=== PATIENT | male | born 1945 | race Caucasian/White ===

== ENCOUNTER 2025-02-09 00:35 | Inpatient (IN) | payer MEDICARE, MEDICAID ==
[~2025-02-09] VITALS: Ht 181.6 cm; Wt 77.0 kg
[2025-02-09] VITALS (11 sets, daily range): BP systolic 67–113; BP diastolic 44–66; PULSE 72–101; RESP 16–20; TEMP 97.5–99; O2SAT 90–97
--- NOTE | 2025-02-09 00:49 | Physician Documentation ---
History of Present Illness Stated Complaint: GI ISSUES Time Seen by MD: 00:45 Source: RN/, EMS Mode of Arrival: EMS HPI Transfer from outside hospital I received a phone call this patient for transfer. He has a small bowel obstruction or gastric outlet obstruction. Presented with abdominal pain and vomiting. Labs show a leukocytosis and elevated lactate. He was initially hypotensive, and given 3 L of IV fluids. An NG tube was placed. He had been previously admitted at [place], and his symptoms resolved with conservative management. They did consult their surgeon, who felt that he may require higher level of care and/or GI intervention, and so he will be transferred. Here now in the ED, he was complaining of upper abdominal pain, although he states it is better than when he initially presented to the ER. Per EMS, he did have slightly diminished blood pressure during transport, he had significant output from his NG tube. Medication Reconciliation Allergies: Coded Allergies: No Known Allergies (Unverified , 02/09/25) Scheduled Aspirin (Aspir 81), 1 TAB PO DAILY, (Reported) Buspirone Hcl* (Buspar*), 1.5 TAB PO Q12H, (Reported) Gabapentin (Gabapentin), 0.5 TAB PO DAILY, (Reported) Melatonin (Melatonin), 1 TAB PO HS, (Reported) Methylphenidate HCl (Methylphenidate HCl), 1 TAB PO DAILY, (Reported) Midodrine Hcl* (Proamatine*), 2 TAB PO BID, (Reported) Omeprazole (Prilosec), 1 CAP PO DAILY, (Reported) Oxybutynin Chloride (Oxybutynin Chloride), 2 TAB PO DAILY, (Reported) Pregabalin* (Lyrica*), 2 CAP PO BID, (Reported) Quetiapine Fumarate (Seroquel), 1 TAB PO BID, (Reported) Past Medical History Past Medical History: Bowel Obstruction Review of Systems Constitutional: Denies: fever Gastrointestinal: Reports: abdominal pain, nausea, vomiting Physical Exam Physical Exam General: This is a chronically ill-appearing elderly man, on an EMS stretcher, with an NG tube HEENT: Atraumatic, oropharynx is dry. NG tube in place with dark brown output Heart: Tachycardic, appears regular Lungs: Diminished breath sounds bilateral, normal work of breathing, normal oxygen saturation on room air Abdomen: Soft, nondistended, tender to palpation in the upper abdomen Psychiatric: Appears tired but is cooperative with exam Medical Decision Making Additional info obtained from: old records Findings Reviewed records from outside hospital, [place] [id number], elevated lactate, and CT scan with obstruction Additional Comments The patient presents as a transfer from outside hospital, with essentially a duodenal obstruction. Initially here in the ED, he has slightly hypotensive, and was given further IV fluids, he does have significant output from his NG tube and I suspect fluid loss has a cause of his dehydration. Sepsis remains in the differential and so lactate and blood cultures will be obtained. I did review his CT scan after we uploaded it from the CD, which shows a markedly distended stomach and duodenum. I contacted the medicine service for admission, with plan for surgical/possibly GI consult in the morning. Departure Impression: Primary Impression: Obstruction, duodenum Referrals: NO PRIMARY CARE PROVIDER (PCP) Signature Scribe Signature: na Attestation: MARTINEZ Gutierrez MD Feb 09, 2025 00:49
[2025-02-09] MEDS: ondansetron/PF 4mg/2ml inj IM ONE (00:59)
[2025-02-09] MEDS: morphine 4 MG/ML inj SYRINge IV ONE (00:59)
[2025-02-09 01:23] LABS: BASOPHILS % (AUTO) 0.3 % (0-1); EOSINOPHILS % (AUTO) 0 % (0-6); HEMATOCRIT 42.2 % (42.0-52.0); HEMOGLOBIN 13.7 g/dl (14.0-17.9); LYMPHOCYTES % (AUTO) 6.6 % (21-51); MEAN CORPUSCULAR HEMOGLOBIN 28.3 PG (27.0-31.0); MEAN CORPUSCULAR HGB CONC 32.4 g/dL (33.0-36.5); MEAN CORPUSCULAR VOLUME 87.1 FL (78-98); MONOCYTES # (AUTO) 0.7 X10'3 (0-0.9); MONOCYTES % (AUTO) 4.4 % (2-12); NEUTROPHILS # (AUTO) 13.3 X10'3 (1.8-7.7); NEUTROPHILS % (AUTO) 88.7 % (42-75); PLATELET COUNT 444 X10'3 (140-440); RED BLOOD COUNT 4.85 X10'6 (4.70-6.10)
[2025-02-09 01:37] LABS: INR 1.1 INR; PROTHROMBIN TIME 11.2 SECONDS (9.0-12.0)
[2025-02-09 01:41] LABS: ALANINE AMINOTRANSFERASE 33 U/L (12-78); ALBUMIN 3.9 G/DL (3.4-5.0); ALBUMIN/GLOBULIN RATIO 0.7 (1.1-1.5); ALKALINE PHOSPHATASE 82 IU/L (46-116); ANION GAP 10 (8-16); ASPARTATE AMINO TRANSFERASE 31 U/L (10-37); BILIRUBIN,TOTAL 0.7 MG/DL (0.1-1.0); BLOOD UREA NITROGEN 18 MG/DL (7-18); BUN/CREATININE RATIO 14.8 (10.0-20.0); CHLORIDE 98 MMOL/L (99-107); CREATININE 1.22 MG/DL (0.60-1.10); GLUCOSE 126 MG/DL (70-104); POTASSIUM 4.5 MMOL/L (3.5-5.1); SODIUM 139 MMOL/L (135-145); TOTAL CARBON DIOXIDE 30.9 MMOL/L (24-32); TOTAL PROTEIN 9.2 G/DL (6.4-8.2); eCRCL 53 ML/MIN; eGFR 57 ML/MIN
[2025-02-09] MEDS ORDERED: MIDO2.5T PO (01:52)
[2025-02-09] MEDS ORDERED: OXYB5TAB21 PO (01:52)
[2025-02-09] MEDS ORDERED: QUET25TA PO (01:52)
[2025-02-09] MEDS ORDERED: METH-348 PO (01:52)
[2025-02-09] MEDS ORDERED: OMEP40CA21 PO (01:52)
[2025-02-09] MEDS ORDERED: LYR25C PO (01:52)
[2025-02-09] MEDS ORDERED: GABA-1405 PO (01:52)
[2025-02-09] MEDS ORDERED: MELA10TA2 PO (01:52)
[2025-02-09] MEDS ORDERED: BUSP10TA11 PO (01:52)
[2025-02-09] MEDS ORDERED: ASPI-611 PO (01:52)
[2025-02-09] MEDS ORDERED: mag hydrox/Alum hydrox/simeth 30ml oral suspension PO PRN (02:05)
[2025-02-09] MEDS ORDERED: magnesium hydroxide 30ml (MOM) UD suspension PO PRN (02:05)
[2025-02-09] MEDS ORDERED: potassium Cl 40MEQ/1/2NS 520ml 520 ML IV PRN (02:05)
[2025-02-09] MEDS ORDERED: PERFLUTREN PROTEIN-A MICROSPHR (Optison) 0.22 MG/ML 3ML VIAL IV PRN (02:05)
[2025-02-09] MEDS ORDERED: magnesium Cl slow-release 64mg tablet PO PRN (02:05)
[2025-02-09] MEDS ORDERED: potassium Cl 20 mEq SR tablet PO PRN ×2 (02:05)
[2025-02-09] MEDS ORDERED: magnesium sulf-water 4G/100mL 100 ML IV PRN (02:05)
[2025-02-09] MEDS ORDERED: magnesium sulf-water 2g/50mL 50 ML IV PRN (02:05)
--- NOTE | 2025-02-09 02:12 | HISTORY AND PHYSICAL-Residence ---
History & Physical Providers to CC Resident Creating Document: LEONA ZEPEDA, RES CC: JERMAIN LAGOS MD ~ History of Present Illness Reason for Admit\Complaint: Pain abdomen and vomitings History of Present Illness A 74-year-old male with past medical history it was of esophagitis, large bowel obstruction presented to the ED as a transfer from [place] in view of abdominal pain and multiple episodes of vomitings. Patient endorses that he has lower abdominal pain which is dull in character with a severity of 6/10 without radiation and no aggravating or relieving factors associated with multiple episodes of vomitings since this morning. Patient states that he has bilious vomitings with food particles in the vomitus since this morning. Patient had a similar episode two days ago which relieved with NG tube placement. Patient denies fever, hematemesis, melena. In the ED, patient had low blood pressure with systolic in the range of 80s to 90s that responded to IV fluids. Allergies: Coded Allergies: No Known Allergies (Unverified , 02/09/25) Home Medications Home Medications Active Reported Gabapentin 600 Mg Tablet 0.5 Tab PO DAILY 30 Days Seroquel (Quetiapine Fumarate) 25 Mg Tablet 1 Tab PO BID 30 Days Lyrica* (Pregabalin) 25 Mg Capsule 2 Cap PO BID Oxybutynin Chloride 5 Mg Tablet 2 Tab PO DAILY 30 Days Prilosec (Omeprazole) 40 Mg Capsule 1 Cap PO DAILY 30 Days Proamatine* (Midodrine) 2.5 Mg Tablet 2 Tab PO BID Methylphenidate HCl 5 Mg Tablet 1 Tab PO DAILY 5 Days Melatonin 10 Mg Tablet 1 Tab PO HS 30 Days Buspar* (Buspirone HCl) 10 Mg Tablet 1.5 Tab PO Q12H 30 Days Aspir 81 (Aspirin) 81 Mg Tablet.dr 1 Tab PO DAILY 30 Days Past Medical History Past Medical History Erosive gastritis Anxiety Bipolar affective disorder BPH Chronic low back pain and neck pain Depression Dysphagia HLD Large bowel obstruction Tracheal stenosis Past Surgical History Surgical History Comment Splenectomy Tracheostomy Aortic repair Past Social History Social History Comment Lives at home by himself Uses cane to move around Denies alcohol, tobacco, marijuana or illicit drug use ROS ROS All other systems negative except for the pertinent positives mentioned in the HPI Constitutional: Denies: fever Gastrointestinal: Reports: abdominal pain, nausea, vomiting Exam Vitals: Vital Signs Date Time Temp Pulse Resp B/P (MAP) Pulse Ox O2 Delivery O2 Flow Rate FiO2 02/09/25 00:59 13 02/09/25 00:54 98.2 107 94/51 (65) 100 2.0 General: General: Elderly malnourished male, Alert, awake, oriented, with NG tube HEENT: PERRLA, no icterus, pallor, lymphadenopathy, carotid bruit Respiratory system: Bilateral vesicular breath sounds heard, no adventitious breath sounds CVS: S1-S2 heard, no murmurs/rubs/gallop GI: Tenderness in the lower abdomen and left abdominal quadrant, Soft, no organomegaly, no guarding/rigidity, hypoactive bowel sounds, a linear surgical scar present on the abdomen Neuro: No focal neurological deficits present Extremities: No edema cyanosis clubbing Musculoskeletal: No deformities Skin: Warm and dry Diagnostic Data Last Recorded Lab Results: 02/09/2510802/09/25 010 Diagnostic Data: Laboratory Tests Test 02/09/25 01:09 Prothrombin Time 11.2 SECONDS (9.0-12.0) INR International Normalized Ratio 1.1 INR APTT (Heparin Protocol) 26 SECONDS (45-60) L Coagulation Comments Advance Care Planning Advanced Care plannin - 30 Minutes (I spent 20 minutes discussing various resuscitative measures and the patient decided to be full code) Additional Plan Assessment: A 74-year-old male with multiple medical complaints presented to the ED as a transfer in view of abdominal pain and vomitings. Patient was admitted for the evaluation and management of possible small-bowel obstruction. Plan: Possible small bowel obstruction Leukocytosis with left shift Lactic acidosis CT abdomen: New gastric and distal esophageal and proximal duodenal dilatation at the level of mid transverse duodenum. Increased stool in the rectosigmoid colon consistent with constipation IV ciprofloxacin and Flagyl (day one) IV fluids at 75 cc/hour Pain management and IV Zofran 4 mg p.r.n. NG tube placement Surgery consult in a.m. Prerenal NOHELIA probably secondary to renal tubular stasis Elevated creatinine Continue to monitor BMP Continue IV fluids Elevated protein Reassess after fluid resuscitation If persistently high, consider evaluation for multiple myeloma CAD Continue aspirin 81 mg after surgery Held in view of possible surgery Bipolar affective disorder Depression Continue quetiapine, methylphenidate, buspirone BPH Continue oxybutynin HLD Not on any statins in home meds Reassess in a.m. Chronic low back pain Continue pregabalin Code status: Full code Diet: NPO DVT prophylaxis: SCD Disposition: Admit to ortho, surgery consult in a.m. Leona Zepeda MD Internal Medicine, PGY 1 Attending Physician Attestation Evaluation via HIPAA compliant AV device. I discussed the case with the resident and I agree with the resident's documentation. 74-year-old man with a history of multiple abdominal surgeries (aorta, spleen) and large bowel obstruction transferred from [facility] for management of a small bowel obstruction at the level of the duodenum. He has developed intractable nausea and emesis despite nasogastric suction. Physical examination is notable for left lower quadrant tenderness without rebound. Laboratory studies are notable for a rising lactic acid level. The treatment plan includes: Usual measures for management of a small bowel obstruction including IV hydration, antiemetic therapy and nasogastric suction. Repeat CT of the abdomen and pelvis and serial lactic acid measurements. Piperacillin-tazobactam antimicrobial therapy for coverage of enteric alyssa. A General Surgery consultation has been requested. Critical care time 35 minutes. Date of Service: Feb 09, 2025 Billing Provider: JERMAIN LAGOS MD, SIVA, RES Feb 09, 2025 02:12 JERMAIN LAGOS MD Feb 09, 2025 05:17
[2025-02-09] MEDS: normal saline 1000ml 1,000 ML IV SCH ×2 (02:47→03:25)
[2025-02-09 02:53] LABS: MAGNESIUM 2.7 MG/DL (1.5-2.4)
[2025-02-09] MEDS ORDERED: ondansetron/PF 4mg/2ml inj IV PRN (03:25)
[2025-02-09] MEDS: metroNIDAZOLE-Flagyl 500mg/NS 100 ML IV SCH (03:40)
[2025-02-09] MEDS: ciprofloxacin/D5W 200mg/100mL 100 ML IV SCH (03:59)
[2025-02-09] MEDS ORDERED: diatr meglu/diatrizoate 30ml oral sol.-(3 dose) bottle ONE (05:22)
--- NOTE | 2025-02-09 06:35 | ELECTROCARDIOGRAPH REPORT ---
[facility] Test Date: 2025-02-09 Test Time: 00:42:37 Pat Name: AMNA CASAS Department: EMERGENCY ROOM Room: ORTHO [address] Gender: M Pool Lifeguard: REMY : 1945 Requested By: MARTINEZ HALEY Order Number: [id number] Reading MD: Dr. Jelani Núñez Measurements Intervals [place] Rate: 115 P: 50 NJ: 168 QRS: 96 QRSD: 109 T: 13 QT: 331 QTc: 458 Interpretive Statements Sinus tachycardia Probable left atrial enlargement Right axis deviation Baseline wander in lead(s) V5 Electronically Signed On 02-09-2025 19:02:[address] Jelani Núñez Please click the below link to view image of tracing.
--- NOTE | 2025-02-09 06:36 | RADIOLOGY REPORT ---
EXAM: CT Abdomen and Pelvis Without Intravenous Contrast CLINICAL INDICATION: Bowel obstruction TECHNIQUE: Axial computed tomography images of the abdomen and pelvis without intravenous contrast. This CT exam was performed using one or more of the following dose reduction techniques: automated exposure control, adjustment of the mA and/or kV according to patient size, and/or use of iterative r econstruction technique. CONTRAST: COMPARISON: None FINDINGS: LUNG BASES: Unremarkable. No mass. No consolidation. ABDOMEN: LIVER: Unremarkable. GALLBLADDER AND BILE DUCTS: Unremarkable. No calcified stones. No ductal dilation. PANCREAS: Unremarkable. No ductal dilation. SPLEEN: Unremarkable. No splenomegaly. ADRENALS: Unremarkable. No mass. KIDNEYS AND URETERS: Unremarkable. No obstructing stones. No hydronephrosis. STOMACH AND BOWEL: Colon measures up to 6.2 cm in diameter with constipation. No pneumoperitoneum. No obstruction. No mucosal thickening. PELVIS: APPENDIX: No findings to suggest acute appendicitis. BLADDER: Unremarkable. No stones. REPRODUCTIVE: Unremarkable as visualized. ABDOMEN and PELVIS: INTRAPERITONEAL SPACE: See above. BONES/JOINTS: No acute fracture. No dislocation. SOFT TISSUES: Umbilical hernia containing fat. VASCULATURE: Unremarkable. No abdominal aortic aneurysm. LYMPH NODES: Unremarkable. No enlarged lymph nodes. TUBES, LINES AND DEVICES: Enteric tubes in the stomach. OTHER FINDINGS: . . . . IMPRESSION: 1. Colon measures up to 6.2 cm in diameter with constipation. No pneumoperitoneum. 2. Umbilical hernia containing fat.
[2025-02-09] MEDS: HYDROcodone/acetaminophen 5mg/325mg tablet PO ONE (07:01)
[2025-02-09 07:02] LABS: BILIRUBIN,URINE NEGATIVE (Neg); CLARITY,URINE CLEAR (Clear); COLOR,URINE YELLOW (Yellow); GLUCOSE, URINE NEGATIVE (Neg); KETONES,URINE NEGATIVE (Neg); LEUKOCYTE ESTERASE ,URINE NEGATIVE (Neg); NITRITES, URINE NEGATIVE (Neg); OCCULT BLOOD,URINE NEGATIVE (Neg); PH,URINE 7.5 (4.8-8.0); PROTEIN,URINE TRACE mg/dl (Neg); UROBILINOGEN,URINE 0.2 E.U/dL (0.2-1.0)
[2025-02-09 07:05] LABS: UA COLLECTION TYPE NON-SPECIFIED
[2025-02-09 07:08] LABS: BACTERIA,URINE FEW /HPF (Neg); MUCUS STRANDS NONE SEEN /LPF (Neg); RBC,URINE NONE SEEN /HPF (0-2); SQUAMOUS EPITHELIAL CELL,UR FEW /LPF (FEW); WBC,URINE 0-4 /HPF (0-4)
[2025-02-09] MEDS: K and/or MAG REPLACEMENT MC SCH (08:00)
[2025-02-09] MEDS: busPIRone 15mg tablet PO SCH (08:24)
[2025-02-09] MEDS: pregabalin 25mg capsule PO SCH (08:24)
[2025-02-09] MEDS: oxybutynin 5mg tablet PO SCH (08:24)
[2025-02-09] MEDS: docusate sod 100mg capsule PO SCH (08:24)
[2025-02-09] MEDS: gabapentin 300mg capsule PO SCH (08:24)
[2025-02-09] MEDS: pantoprazole 40mg Tablet.DR PO SCH (08:24)
[2025-02-09] MEDS: QUEtiapine 25mg tablet PO SCH (08:24)
[2025-02-09] MEDS: piperacillin/tazo 3.375gm/50ml 50 ML IV SCH (08:24)
[2025-02-09] MEDS: diatr meglu/diatrizoate 30ml oral sol.-(3 dose) bottle PO SCH (08:25)
[2025-02-09] MEDS: midodrine 5mg tablet PO SCH (08:38)
[2025-02-09] MEDS: methylphenidate 5mg tablet PO SCH (10:42)
[2025-02-09] MEDS: midodrine tablet 2.5 MG TABLET PO ONE (11:02)
[2025-02-09] MEDS: normal saline 1000ml 1,000 ML IVB ONE ×2 (11:05→11:45)
--- NOTE | 2025-02-09 13:35 | CARDIOLOGY REPORT ---
APPROVED REPORT EXAM: Comprehensive 2D, Doppler, and color-flow Echocardiogram. Patient Location: [address] Blood Pressure: 100/45 mmHg Heart Rate: 95 bpm Rhythm: SINUS Indications CONGESTIVE HEART FAILURE PRE-OP BOWEL OBSTRUCTION Medical Delivery Technician: none Previous echo: none 2D Dimensions RVDd 4.5 cm LA Diam3.6 cm IVSd 0.9 (0.7-1.1cm) LVDd 3.9 cm PWd 0.9 (0.7-1.1cm) RA Major4.7 cm IVSs 1.1 (0.8-1.2cm) RA Minor4.9 cm LVDs 2.3 (2.5-4.0cm) PWs 1.2 (0.8-1.2cm) LVOT Diameter 2.01 (1.8-2.4cm) LVEF(%) 71.6 (>50%) FS (%) 40.3 % SV 47.3 ml CO 4.3 L/min Biplane 2D LA Volumes LA ESV Index 25.41 mL/m2 Aortic Valve AoV Peak Yandel. 207.5 cm/s AoV VTI 37.3 cm AO Peak GR. 17.2 mmHg AO Mean GR. 10 mmHg LVOT VTI 33.54 cm LVOT Peak Yandel. 173.4 cm/s JIHAN(VTI)/BSA 2.84 cm2/m2 JIHAN (VTI) 2.84 cm2 Mitral Valve MV E Velocity 85.9 cm/s MV Peak Gr. 4 mmHg MV DECEL TIME 268 ms MV A Velocity 120.9 cm/s MV PHT 44 ms E/A Ratio 0.7 MVA (PHT) 5.00 cm2 MV GPvx676.0 cm/s TDI Medial E' P. V 7.67 cm/s E/Medial E' 11.2 Pulmonary Valve PAEDP18.40 mmHg Tricuspid Valve TR P. Velocity 287 cm/s RAP ESTIMATE 10 mmHg TR Peak Gr. 33 mmHg RVSP 43 mmHg Pulmonary Vein S1 Velocity 79.4 cm/s D2 Velocity 54.6 cm/s PVa Npwhonqc87.6 cm/s PVa Pyfktrxz660 msec LEFT VENTRICLE Normal LV size and wall thickness. Overall systolic function is hyperdynamic. Prominent septal knuckl e is measured at: 1.58 cm. LVEF is 70-75%. RIGHT VENTRICLE RV is moderately dilated with normal systolic function. RVSP is estimated at 43 mmHg. ATRIA LA size is normal. AORTIC VALVE Trileaflet AV appears mildly sclerotic without stenosis or insufficiency. MITRAL VALVE Mild MV annular calcification without stenosis. Mild regurgitation. TRICUSPID VALVE TV appears structurally normal with trace regurgitation. PULMONIC VALVE Normal PV without stenosis, mild insufficiency. GREAT VESSELS Aortic root is normal in size. Ascending aorta is normal in size. PERICARDIUM Normal pericardium. No effusion. Other Information Study Quality: Adequate Conclusion Normal LV size and wall thickness. Overall systolic function is hyperdynamic. Prominent septal knuckl e is measured at: 1.58 cm. LVEF is 70-75%. RV is moderately dilated with normal systolic function. RVSP is estimated at 43 mmHg. LA size is normal. Trileaflet AV appears mildly sclerotic without stenosis or insufficiency. Mild MV annular calcification without stenosis. Mild regurgitation. TV appears structurally normal with trace regurgitation. Normal PV without stenosis, mild insufficiency. Normal pericardium. No effusion.
--- NOTE | 2025-02-09 14:53 | RADIOLOGY REPORT ---
CT abdomen and pelvis with oral contrast INDICATION: SBO at the level of duodenal Comparison: 02/08/2025 TECHNIQUE: Serial axial images were performed through the abdomen and pelvis and then reformatted in the sagittal and coronal plane. All CT scans at this medical facility are performed using dose modula tion techniques as appropriate to a performed exam including the following: Automated exposure contro l was utilized; adjustment of the MA and/or KvP according to patient size; and use of iterative recon struction technique. FINDINGS: Pleural and parenchymal disease is present both lung bases. No obvious lesions in the liver or spleen Line no hydronephrosis No masses in the adrenal glands or pancreas No biliary dilatation. Question small gallstones. There is an NG tube present in the stomach. There is no suggestion of obstruction of the stomach, small intestine or large intestine. The urinary bladder is smooth walled There is mild rectal distention containing fecal material. Prostate gland normal in size. IMPRESSION: 1. Compared to previous exam an NG tube is been placed with decompression of the stomach and duodenum . No evidence of small-bowel obstruction on this exam. 2. Bibaslar pleural and parenchymal . Question aspiration related Computed Tomographic Radiation Dosimetry Report: Total CTDI vol = 24 mGy Total DLP = 1427 mGy-cm Low dose protocols were performed.
[2025-02-09] MEDS ORDERED: acetaminophen 325mg tablet PO PRN (15:15)
[2025-02-09] MEDS: acetaminophen 325mg tablet PO PRN (15:27)
[2025-02-09] MEDS: LidoCAINE 2% Topical Jelly 11mL syringe (UROJET) TOP ONE (16:47)
[2025-02-09] MEDS: ondansetron/PF 4mg/2ml inj IV PRN (19:00)
--- NOTE | 2025-02-09 21:11 | PROGRESS NOTE ---
Progress Note ID Providers to CC ~ Progress Note Progress Note: repeat ct much improved NEDA HAWKINS MD Feb 09, 2025 21:11
[2025-02-09] MEDS: normal saline 1000ml 1,000 ML IV ONE (23:17)
[2025-02-10] VITALS (14 sets, daily range): BP systolic 93–118; BP diastolic 46–67; PULSE 78–99; RESP 14–18; TEMP 97.9–99.1; O2SAT 92–97
[2025-02-10] MEDS: normal saline 1000ml 1,000 ML IV ONE (01:15)
[2025-02-10 04:36] LABS: BASOPHILS % (AUTO) 0.1 % (0-1); EOSINOPHILS # (AUTO) 0.2 X10'3 (0-0.9); EOSINOPHILS % (AUTO) 1.4 % (0-6); HEMATOCRIT 26.5 % (42.0-52.0); HEMOGLOBIN 8.6 g/dl (14.0-17.9); LYMPHOCYTES # (AUTO) 1.8 X10'3 (1.1-4.8); LYMPHOCYTES % (AUTO) 9.7 % (21-51); MEAN CORPUSCULAR HEMOGLOBIN 28.3 PG (27.0-31.0); MEAN CORPUSCULAR HGB CONC 32.5 g/dL (33.0-36.5); MEAN CORPUSCULAR VOLUME 87.1 FL (78-98); MEAN PLATELET VOLUME 8.5 FL (7.4-10.4); MONOCYTES # (AUTO) 1.5 X10'3 (0-0.9); MONOCYTES % (AUTO) 8.1 % (2-12); NEUTROPHILS # (AUTO) 14.6 X10'3 (1.8-7.7); NEUTROPHILS % (AUTO) 80.7 % (42-75); PLATELET COUNT 307 X10'3 (140-440); RED BLOOD COUNT 3.04 X10'6 (4.70-6.10); RED CELL DISTRIBUTION WIDTH 15.7 % (11.5-14.5); WHITE BLOOD COUNT 18.1 X10'3 (4.5-11.0)
[2025-02-10 04:44] LABS: ALANINE AMINOTRANSFERASE 12 U/L (12-78); ALBUMIN 2.1 G/DL (3.4-5.0); ALBUMIN/GLOBULIN RATIO 0.6 (1.1-1.5); ALKALINE PHOSPHATASE 47 IU/L (46-116); ANION GAP 3 (8-16); ASPARTATE AMINO TRANSFERASE 16 U/L (10-37); BILIRUBIN,TOTAL 0.5 MG/DL (0.1-1.0); BLOOD UREA NITROGEN 15 MG/DL (7-18); BUN/CREATININE RATIO 18.5 (10.0-20.0); CALCIUM 8.2 MG/DL (8.5-10.1); CHLORIDE 108 MMOL/L (99-107); CREATININE 0.81 MG/DL (0.60-1.10); GLUCOSE 97 MG/DL (70-104); SODIUM 140 MMOL/L (135-145); TOTAL CARBON DIOXIDE 28.6 MMOL/L (24-32); TOTAL PROTEIN 5.7 G/DL (6.4-8.2); eCRCL 80 ML/MIN; eGFR > 90 ML/MIN
[2025-02-10] MEDS: pantoprazole 40 MG vial IV ONE (05:43)
[2025-02-10] MEDS: morphine 2 MG/ML inj. syringe IV ONE ×2 (05:44→09:48)
--- NOTE | 2025-02-10 09:11 | RADIOLOGY REPORT ---
EXAM: DI CHEST,SINGLE VIEW HISTORY: Questionable pneumoniae COMPARISON: None TECHNIQUE: Portable upright AP view of the chest was performed. FINDINGS: There are extensive irregular opacities throughout the left hemithorax, with leftward shift of the he art and mediastinum. There are mild irregular opacities in the right lung, greatest in the upper lung . No pneumothorax. Cardiac margins are obscured. There is an aortic arch endovascular stent. There i s an NG tube with its tip at least 7 cm distal to the GE junction. IMPRESSION: 1. Extensive left lung opacities with leftward shift of the heart and mediastinum. It is uncertain if this appearance may be due to prior partial pneumonectomy, atelectasis, or other etiology. Please co rrelate with any surgical history for this patient. 2. Irregular opacities in the right lung, greatest in the upper lung. This appearance may be due to s carring, reactive airways disease, and/or typical pneumonia. Consider follow-up noncontrast CT scan of the chest for better characterization. 3. NG tube tip is distal to the GE junction. 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
[2025-02-10] MEDS: methylPREDNISolone sod succ 125mg/2ml vial IV ONE (09:48)
--- NOTE | 2025-02-10 11:39 | RADIOLOGY REPORT ---
CLINICAL INFORMATION: 80 years old, Male; Severe atelectasis. TECHNIQUE: Axial CT imaging of the chest was performed without IV contrast. Sagittal and coronal ref ormatted images were made, stored and reviewed. Evaluation is limited without IV contrast. One or mor e of the following dose reduction techniques were used: Automated exposure control. Adjustment of mA and/or kV according to patient size. CTDIvol = 16.56 mGy DLP = 661.87 mGy-cm COMPARISON: Same day chest radiograph. FINDINGS: Aorta: Stent graft at the level of the aortic arch. Cardiac: Heart size is within normal limits. Moderate coronary artery calcification. Mediastinum/marti: Mildly prominent mediastinal lymph nodes measuring up to 1.4 cm in short axis dimen vicky of the right lower paratracheal station. Prevascular lymph nodes measure up to 1 cm in short axi s. Lungs: Small left pleural effusion with overlying atelectasis and consolidation in the left lower lob e. There is also prominent atelectasis and consolidation in the left upper lobe and lingula. Trace ri ght pleural effusion with overlying atelectasis and consolidation in the right lower lobe. Patchy ar eas of consolidation in the right upper lobe, likely infectious or inflammatory in nature. Pulmonary arteries: No gross abnormality. Chest wall: No mass or other abnormality. Upper abdomen: Small calcified gallstones in the gallbladder. Mass in the left upper abdomen abutting the lateral limb of the left adrenal gland, possibly an adrenal mass measures up to 2.4 cm, with in determinate density. Enteric tube reaches the body of the stomach. Bones: No fracture or suspicious intraosseous lesions. IMPRESSION: 1. Multifocal airspace consolidations are seen in the lungs bilaterally, left greater than right, mos t likely infectious or inflammatory in nature, including multifocal pneumonia in the appropriate clin ical setting. 2. Small left and trace right pleural effusions. 3. Mildly prominent mediastinal lymph nodes, may be reactive. Malignancy can not be excluded. 4. Cholelithiasis. 5. Mass in the left upper abdomen, abutting the lateral limb of the left adrenal gland, possible adre nal mass, with indeterminate density. Correlate with clinical findings. MRI adrenal mass protocol cou ld be considered for further characterization. 6. Additional findings as described above
[2025-02-10] MEDS: ipratropium/albuterol 3ml nebule NEB SCH (11:51)
[2025-02-10] MEDS ORDERED: metoclopramide 10mg tablet PO SCH (14:00)
[2025-02-10] MEDS: methylPREDNISolone sod succ 125mg/2ml vial IV SCH (16:14)
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
--- NOTE | 2025-02-10 18:12 | PROGRESS NOTE ---
Progress Note ID Providers to CC ~ Progress Note Progress Note: PT SEEN AND EXAMINED- TO EVALUATE-NEEDS SPEECH PATH NEDA GAN MD Feb 10, 2025 18:12
--- NOTE | 2025-02-10 18:17 | PROGRESS NOTE- Residence ---
Progress Note - Resident Providers to CC Resident Creating Document: CARMELLA ASH RES ~ Antibiotic Timeout Antibiotic Ordered?: Yes Subjective Patient was seen and examined bedside, patient complained of severe throat pain secondary to NG tube. NPO until patient passes swallow test. Objective Vital Signs Date Time Temp Pulse Resp B/P (MAP) Pulse Ox O2 Delivery O2 Flow Rate FiO2 02/10/25 16:32 95 16 Room Air 0.0 02/10/25 16:25 96 21 02/10/25 10:00 98.4 101/55 (70) Result Diagram: 02/10/25 0405 02/10/25 0405 Awake , alert, and oriented x4, resting comfortably in the bed, in no acute distress HEENT: Atraumatic, normocephalic, EOMI, anicteric sclera ; pink conjunctiva Neck: Trachea midline. Supple, full range of motion, no JVD Cardiac: Regular rhythm, regular rate with systolic murmurs all over the precordium. Respiratory: No lung sounds on the left lower, Gastrointestinal: Abdomen symmetric, non-distended, soft, non-tender, normal bowel sounds x4 quadrant, normoactive, no hepatosplenomegaly Musculoskeletal: Peripheral pulses felt, no edema Neurological: Speech is clear, alert, and oriented x 4. No motor or sensory deficit, deep tendon reflexes normal, cerebellar intact. Cranial nerves II-XII intact. Skin: Warm and dry Coagulation Studies Laboratory Tests Test 02/09/25 01:09 Prothrombin Time 11.2 SECONDS (9.0-12.0) INR International Normalized Ratio 1.1 INR APTT (Heparin Protocol) 26 SECONDS (45-60) L Coagulation Comments Advance Care Planning Advanced Care plannin - 30 Minutes Assessment Assessment A 74-year-old male was admitted for partial small bowel obstruction, which resolved in the following CT scan. An incidental chest x-ray showed left collapsed lung with bilateral consolidations and severe atelectasis. Plan Plan Partial small-bowel obstruction: Resolved Leukocytosis Lactic acidosis CT abdomen at the outside facility showed: New gastric and distal esophageal and proximal duodenal dilatation at the level of mid transverse duodenum. Increased stool in the rectosigmoid colon consistent with constipation CT abdomen with oral contrast the following day showed: Compared to previous exam an NG tube is been placed with decompression of the stomach and duodenum. No evidence of small-bowel obstruction on this exam. Patient received IV ciprofloxacin Flagyl IV fluids at 75 cc/hour Pain management and IV Zofran 4 mg p.r.n. NG tube in place Dr. Dodd consulted, recommended to continue medical management Multifocal pneumoniae/hospital-acquired pneumonia/aspiration pneumonia History of repeated bouts of pneumoniae Possible underlying community-acquired pneumonia, Gram-positive Gram-negative coverage WBC count trended up to 18 from 15 Initiated IV methylprednisone 125 mg once followed by 62 mg q.6 H Initiated IV Zosyn q.8h Initiated DuoNeb q.4h scheduled Chest x-ray showed: Extensive left lung opacities with leftward shift of the heart and mediastinum. It is uncertain if this appearance may be due to prior partial pneumonectomy, atelectasis, or other etiology. Please correlate with any surgical history for this patient. Irregular opacities in the right lung, greatest in the upper lung. This appearance may be due to scarring, reactive airways disease, and/or typical pneumonia. Consider follow-up noncontrast CT scan of the chest for better characterization. NG tube tip is distal to the GE junction. 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 CT chest showed: Multifocal airspace consolidations are seen in the lungs bilaterally, left greater than right, most likely infectious or inflammatory in nature, including multifocal pneumonia.Small left and trace right pleural effusions. Mildly prominent mediastinal lymph nodes, may be reactive. Malignancy can not be excluded. Cholelithiasis. Power Transformer Assembler team consulted: Recommended continued medical management Prerenal NOHELIA Resolved Coronary artery disease Continue aspirin 81 mg Bipolar affective disorder Depression Continue quetiapine, methylphenidate, buspirone BPH Continue oxybutynin HLD Lipid panel ordered Chronic low back pain Continue pregabalin Code status: Full code Diet: NPO until BSS passed DVT prophylaxis: Heparin SQ Critical care time 35 minutes. Carmella Ash MD Internal Medicine Resident, PGY-1 Date of Service: Feb 10, 2025 Billing Provider: ALLI SAMSON MD Common Visit Codes: [id number] CARE 30-74 MIN CARMELLA ASH, RES Feb 10, 2025 18:17 ALLI SAMSON MD February 16, 2025 14:49
[2025-02-10 18:31] LABS: CHOL/HDL RATIO 1.7 (0.00-4.99); CHOLESTEROL 69 MG/DL (0-200); HDL CHOLESTEROL 40 MG/DL (35-60); LDL CHOLESTEROL 20 MG/DL (50-100); TRIGLYCERIDES 49 MG/DL (20-135)
[2025-02-10] MEDS: Chloraseptic (Phenol) Spray 177ml MM PRN (20:00)
[2025-02-10] MEDS: heparin, porcine 5000 units/ml vial SQ SCH (20:02)
[2025-02-10] MEDS: metoclopramide 5 mg/ml inj IV SCH (20:03)
[2025-02-11] VITALS (9 sets, daily range): BP systolic 102–118; BP diastolic 58–65; PULSE 75–85; RESP 14–20; TEMP 96–98.8; O2SAT 92–94
[2025-02-11] MEDS: diphenhydrAMINE 50 mg/ml inj IV ONE ×2 (00:53→08:30)
[2025-02-11 05:06] LABS: BASOPHILS # (AUTO) 0.1 X10'3 (0-0.2); BASOPHILS % (AUTO) 0.4 % (0-1); EOSINOPHILS % (AUTO) 0 % (0-6); HEMATOCRIT 27.5 % (42.0-52.0); HEMOGLOBIN 9.1 g/dl (14.0-17.9); LYMPHOCYTES # (AUTO) 0.9 X10'3 (1.1-4.8); MEAN CORPUSCULAR HEMOGLOBIN 28.7 PG (27.0-31.0); MEAN CORPUSCULAR HGB CONC 33.3 g/dL (33.0-36.5); MEAN CORPUSCULAR VOLUME 86.2 FL (78-98); MEAN PLATELET VOLUME 8.7 FL (7.4-10.4); MONOCYTES # (AUTO) 0.3 X10'3 (0-0.9); MONOCYTES % (AUTO) 1.7 % (2-12); NEUTROPHILS # (AUTO) 13.9 X10'3 (1.8-7.7); NEUTROPHILS % (AUTO) 91.9 % (42-75); PLATELET COUNT 344 X10'3 (140-440); RED BLOOD COUNT 3.19 X10'6 (4.70-6.10); RED CELL DISTRIBUTION WIDTH 15.8 % (11.5-14.5); WHITE BLOOD COUNT 15.2 X10'3 (4.5-11.0)
[2025-02-11 05:26] LABS: ALANINE AMINOTRANSFERASE 12 U/L (12-78); ALBUMIN 2.2 G/DL (3.4-5.0); ALBUMIN/GLOBULIN RATIO 0.5 (1.1-1.5); ALKALINE PHOSPHATASE 53 IU/L (46-116); ANION GAP 5 (8-16); ASPARTATE AMINO TRANSFERASE 15 U/L (10-37); BILIRUBIN,TOTAL 0.4 MG/DL (0.1-1.0); BLOOD UREA NITROGEN 19 MG/DL (7-18); BUN/CREATININE RATIO 23.5 (10.0-20.0); CALCIUM 8.7 MG/DL (8.5-10.1); CHLORIDE 106 MMOL/L (99-107); CREATININE 0.81 MG/DL (0.60-1.10); GLUCOSE 131 MG/DL (70-104); MAGNESIUM 2.1 MG/DL (1.5-2.4); POTASSIUM 3.8 MMOL/L (3.5-5.1); SODIUM 139 MMOL/L (135-145); TOTAL CARBON DIOXIDE 27.6 MMOL/L (24-32); TOTAL PROTEIN 6.3 G/DL (6.4-8.2); eCRCL 80 ML/MIN; eGFR > 90 ML/MIN
[2025-02-11] MEDS: aspirin 81mg tab.chew PO SCH (08:30)
[2025-02-11] MEDS ORDERED: cefepime 2g/NS 100ml ADVANTAGE 100 ML IV SCH (10:30)
[2025-02-11] MEDS ORDERED: LORazepam 0.5 MG tablet PO PRN (10:35)
[2025-02-11] MEDS ORDERED: diphenhydrAMINE 25mg capsule PO PRN (10:35)
[2025-02-11] MEDS ORDERED: normal saline 1,000 ML IV SCH (10:35)
[2025-02-11] MEDS ORDERED: CEFEPIME 2gm in D5W 50mL 50 ML IV SCH (10:35)
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
[2025-02-11] MEDS: vancomycin/NS 1 GM ADD-VANTAGE 250 ML IV SCH (12:16)
[2025-02-11] MEDS: metroNIDAZOLE-Flagyl 500mg/NS 100 ML IV SCH (12:16)
--- NOTE | 2025-02-11 12:53 | PROGRESS NOTE- Residence ---
Progress Note - Resident Providers to CC Resident Creating Document: CARMELLA WHITEHEAD RES ~ Antibiotic Timeout Antibiotic Ordered?: Yes Subjective Patient was seen and examined bedside, patient had a bowel movement today. No acute overnight symptoms. SBO resolved Objective Vital Signs Date Time Temp Pulse Resp B/P (MAP) Pulse Ox O2 Delivery O2 Flow Rate FiO2 02/11/25 09:08 98.0 79 20 117/65 (82) 94 Room Air 02/11/25 09:04 0 21 Result Diagram: 02/11/25 0450 02/11/25 0450 Awake , alert, and oriented x4, resting comfortably in the bed, in no acute distress HEENT: Atraumatic, normocephalic, EOMI, anicteric sclera ; pink conjunctiva Neck: Trachea midline. Supple, full range of motion, no JVD Cardiac: Regular rhythm, regular rate with systolic murmurs all over the precordium. Respiratory: No lung sounds on the left lower, Gastrointestinal: Abdomen symmetric, non-distended, soft, non-tender, normal bowel sounds x4 quadrant, normoactive, no hepatosplenomegaly Musculoskeletal: Peripheral pulses felt, no edema Neurological: Speech is clear, alert, and oriented x 4. No motor or sensory deficit, deep tendon reflexes normal, cerebellar intact. Cranial nerves II-XII intact. Skin: Warm and dry Coagulation Studies Laboratory Tests Test 02/09/25 01:09 Prothrombin Time 11.2 SECONDS (9.0-12.0) INR International Normalized Ratio 1.1 INR APTT (Heparin Protocol) 26 SECONDS (45-60) L Coagulation Comments Assessment Assessment A 74-year-old male was admitted for partial small bowel obstruction, which resolved in the following CT scan. An incidental chest x-ray showed left collapsed lung with bilateral consolidations and severe atelectasis. Plan Plan Partial small-bowel obstruction: Resolved Sepsis secondary to above versus multifocal pneumonia Lactic acidosis CT abdomen at the outside facility showed: New gastric and distal esophageal and proximal duodenal dilatation at the level of mid transverse duodenum. Increased stool in the rectosigmoid colon consistent with constipation CT abdomen with oral contrast the following day showed: Compared to previous exam an NG tube is been placed with decompression of the stomach and duodenum. No evidence of small-bowel obstruction on this exam. Patient received IV ciprofloxacin Flagyl IV fluids at 75 cc/hour Pain management and IV Zofran 4 mg p.r.n. NG tube in place Dr. Dodd consulted, recommended to continue medical management 02/11/2025: Patient had a large bowel movement, SBO resolved, bowel movements present Speech therapy recommended full liquid diet NG tube was removed today, full liquid diet, advance as tolerated Multifocal pneumoniae History of repeated bouts of pneumoniae Possible underlying community-acquired pneumonia, Gram-positive Gram-negative coverage WBC count trended up to 18 from 15 Initiated IV methylprednisone 125 mg once followed by 62 mg q.6 H Initiated IV Zosyn q.8h Initiated DuoNeb q.4h scheduled Chest x-ray showed: Extensive left lung opacities with leftward shift of the heart and mediastinum. It is uncertain if this appearance may be due to prior partial pneumonectomy, atelectasis, or other etiology. Please correlate with any surgical history for this patient. Irregular opacities in the right lung, greatest in the upper lung. This appearance may be due to scarring, reactive airways disease, and/or typical pneumonia. Consider follow-up noncontrast CT scan of the chest for better characterization. NG tube tip is distal to the GE junction. 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 CT chest showed: Multifocal airspace consolidations are seen in the lungs bilaterally, left greater than right, most likely infectious or inflammatory in nature, including multifocal pneumonia.Small left and trace right pleural effusions. Mildly prominent mediastinal lymph nodes, may be reactive. Malignancy can not be excluded. Cholelithiasis. Quality Assurance Consultant team consulted: Recommended continued medical management 02/11/2025: Dr. Peters, ID was consulted. Recommended to initiate vancomycin, cefepime and metronidazole. Also recommended to stop steroids Continue breathing treatment and antibiotics per ID Prerenal NOHELIA Resolved Coronary artery disease Continue aspirin 81 mg Bipolar affective disorder Depression Continue quetiapine, methylphenidate, buspirone BPH Continue oxybutynin HLD Lipid panel normal Chronic low back pain Continue pregabalin Code status: Full code Diet: FLL, advance diet as tolerated DVT prophylaxis: Heparin SQ Carmella Whitehead MD Internal Medicine Resident, PGY-1 Date of Service: Feb 11, 2025 Billing Provider: ALLI SAMSON MD Common Visit Codes: [id number] INP/OBS CARE(HIGH) CARMELLA WHITEHEAD, RES Feb 11, 2025 12:53 ALLI SAMSON MD February 16, 2025 14:51
[2025-02-11] MEDS ORDERED: HYDR-3965 PO (14:49)
[2025-02-11] MEDS: CEFEPIME 2gm in D5W 50mL 50 ML IV SCH (14:51)
[2025-02-11] MEDS: acetaminophen 650mg rectal suppository RC ONE (15:17)
[2025-02-11] MEDS: ipratropium/albuterol 3ml nebule NEB PRN (20:04)
[2025-02-11] MEDS: diphenhydrAMINE 25mg capsule PO ONE (23:14)
[2025-02-12] VITALS (7 sets, daily range): BP systolic 91–158; BP diastolic 63–72; PULSE 63–69; RESP 13–20; TEMP 97.3–98.3; O2SAT 92–99
[2025-02-12 05:14] LABS: BASOPHILS % (AUTO) 0.2 % (0-1); EOSINOPHILS % (AUTO) 0 % (0-6); HEMATOCRIT 25.4 % (42.0-52.0); HEMOGLOBIN 8.4 g/dl (14.0-17.9); LYMPHOCYTES # (AUTO) 2.4 X10'3 (1.1-4.8); LYMPHOCYTES % (AUTO) 11.5 % (21-51); MEAN CORPUSCULAR HEMOGLOBIN 28.8 PG (27.0-31.0); MEAN CORPUSCULAR VOLUME 87.3 FL (78-98); MONOCYTES # (AUTO) 1.5 X10'3 (0-0.9); MONOCYTES % (AUTO) 7.1 % (2-12); NEUTROPHILS # (AUTO) 17.1 X10'3 (1.8-7.7); NEUTROPHILS % (AUTO) 81.2 % (42-75); PLATELET COUNT 348 X10'3 (140-440); RED BLOOD COUNT 2.91 X10'6 (4.70-6.10); RED CELL DISTRIBUTION WIDTH 15.7 % (11.5-14.5)
[2025-02-12 05:23] LABS: ALANINE AMINOTRANSFERASE 14 U/L (12-78); ALBUMIN/GLOBULIN RATIO 0.6 (1.1-1.5); ALKALINE PHOSPHATASE 46 IU/L (46-116); ANION GAP 3 (8-16); ASPARTATE AMINO TRANSFERASE 15 U/L (10-37); BILIRUBIN,TOTAL 0.2 MG/DL (0.1-1.0); BLOOD UREA NITROGEN 17 MG/DL (7-18); CALCIUM 8.4 MG/DL (8.5-10.1); CHLORIDE 110 MMOL/L (99-107); CREATININE 0.85 MG/DL (0.60-1.10); GLUCOSE 105 MG/DL (70-104); MAGNESIUM 2.1 MG/DL (1.5-2.4); POTASSIUM 4.1 MMOL/L (3.5-5.1); SODIUM 142 MMOL/L (135-145); TOTAL CARBON DIOXIDE 28.9 MMOL/L (24-32); TOTAL PROTEIN 5.5 G/DL (6.4-8.2); eCRCL 77 ML/MIN; eGFR 87 ML/MIN
--- NOTE | 2025-02-12 07:44 | PROGRESS NOTE- Residence ---
Progress Note - Resident Providers to CC Resident Creating Document: CARMELLA WHITEHEAD RES ~ Antibiotic Timeout Antibiotic Ordered?: Yes Subjective Patient was seen and examined bedside, patient had a bowel movement. No acute overnight symptoms. SBO resolved. Speech therapy is evaluating and patient was currently on full liquid diet. Objective Vital Signs Date Time Temp Pulse Resp B/P (MAP) Pulse Ox O2 Delivery O2 Flow Rate FiO2 02/11/25 22:00 97.3 85 15 118/58 (78) 92 Room Air 02/11/25 20:09 0.0 02/11/25 20:04 21 Result Diagram: 02/12/25 0442 02/12/25 0442 Awake , alert, and oriented x4, resting comfortably in the bed, in no acute distress HEENT: Atraumatic, normocephalic, EOMI, anicteric sclera ; pink conjunctiva Neck: Trachea midline. Supple, full range of motion, no JVD Cardiac: Regular rhythm, regular rate with systolic murmurs all over the precordium. Respiratory: No lung sounds on the left lower, normal on the right Gastrointestinal: Abdomen symmetric, non-distended, soft, non-tender, normal bowel sounds x4 quadrant, normoactive, no hepatosplenomegaly Musculoskeletal: Peripheral pulses felt, no edema Neurological: Speech is clear, alert, and oriented x 4. No motor or sensory deficit, deep tendon reflexes normal, cerebellar intact. Cranial nerves II-XII intact. Skin: Warm and dry Coagulation Studies Laboratory Tests Test 02/09/25 01:09 Prothrombin Time 11.2 SECONDS (9.0-12.0) INR International Normalized Ratio 1.1 INR APTT (Heparin Protocol) 26 SECONDS (45-60) L Coagulation Comments Advance Care Planning Advanced Care plannin - 30 Minutes Assessment Assessment A 74-year-old male was admitted for partial small bowel obstruction, which resolved in the following CT scan. An incidental chest x-ray showed left collapsed lung with bilateral consolidations and severe atelectasis. Plan Plan Partial small-bowel obstruction: Resolved Sepsis secondary to above versus multifocal pneumonia Lactic acidosis CT abdomen at the outside facility showed: New gastric and distal esophageal and proximal duodenal dilatation at the level of mid transverse duodenum. Increased stool in the rectosigmoid colon consistent with constipation CT abdomen with oral contrast the following day showed: Compared to previous exam an NG tube is been placed with decompression of the stomach and duodenum. No evidence of small-bowel obstruction on this exam. Patient received IV ciprofloxacin Flagyl IV fluids at 75 cc/hour Pain management and IV Zofran 4 mg p.r.n. NG tube in place Dr. Dodd consulted, recommended to continue medical management 02/11/2025: Patient had a large bowel movement, SBO resolved, bowel movements present Speech therapy, recommended full liquid diet NG tube was removed today, full liquid diet, advance as tolerated 02/12/2025: Continue FLL, elevated white count (secondary to steroid use; methylprednisolone was stopped yesterday.) Bowel sounds and bowel movements present. Dr. 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 It is uncertain if this appearance may be due to prior partial pneumonectomy, atelectasis, or other etiology. Please correlate with any surgical history for this patient. Irregular opacities in the right lung, greatest in the upper lung. This appearance may be due to scarring, reactive airways disease, and/or typical pneumonia. Consider follow-up noncontrast CT scan of the chest for better characterization. NG tube tip is distal to the GE junction. 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 CT chest showed: Multifocal airspace consolidations are seen in the lungs bilaterally, left greater than right, most likely infectious or inflammatory in nature, including multifocal pneumonia.Small left and trace right pleural effusions. Mildly prominent mediastinal lymph nodes, may be reactive. Malignancy can not be excluded. Cholelithiasis. [employer] team consulted: Recommended continued medical management 02/11/2025: Dr. Peters, ID was consulted. Recommended to initiate vancomycin, cefepime and metronidazole. Also recommended to stop steroids Continue breathing treatment and antibiotics per ID 02/12/2025: ID on board, continue vanco, cefepime and metronidazole as per ID Physical therapy evaluation pending, patient will probably need a rehab placement Fall and aspiration precautions in place Prerenal NOHELIA Resolved Coronary artery disease Continue aspirin 81 mg Bipolar affective disorder Depression Continue quetiapine, methylphenidate, buspirone BPH Continue oxybutynin HLD Lipid panel normal Chronic low back pain Continue pregabalin Code status: Full code Diet: FLL, advance diet as tolerated DVT prophylaxis: Heparin SQ Physical therapy, evaluation pending Patient will probably need a rehab placement Carmella Whitehead MD Internal Medicine Resident, PGY-1 Date of Service: February 12, 2025 Billing Provider: CATARINO FATIMA MD Common Visit Codes: [id number] INP/OBS CARE(HIGH) CARMELLA WHITEHEAD, FINESSE February 12, 2025 07:44 CATARINO FATIMA MD February 13, 2025 19:05
--- NOTE | 2025-02-12 09:55 | PROGRESS NOTE ---
Progress Note Dictate Providers to CC ~ Subjective Subjective: He has remained stable. I was able to review records from [facility] as well as his swallow evaluation from [facility]. He has dealt with severe opiate induced constipation. In fact, he had to go to the operating room one time for manual disimpaction. I do not believe he is utilizing any techniques provided by speech therapy. I am also not convinced he has made a significant effort to cut down on opiate use. Unfortunately, he has chronic pain that has been medicated for many years. Objective Objective: GENERAL: He is a pleasant elderly male sitting up in bed looking a bit miserable. He has a nasogastric tube in place. His voice seems to be a bit hoarse. NECK: Supple. LUNGS: Some coarse breath sounds that appear to be decreased at the left side. HEART: Regular rate and rhythm. ABDOMEN: Soft with some tenderness at the left lower quadrant. He does not have any significant distention. EXTREMITIES: No significant edema. Lab Results: 02/12/25 0442 02/12/25 0442 Problem\Assessment\Plan Additional Plan 1. Severe pneumonia that appears to be bilateral, but dominantly affecting the left lung. This would be considered a hospital acquired process. Aspiration likely playing a role. Left lung has been impaired for a long time, but imaging suggests that disease is worse right now. 2. History of dysphagia with aspiration risk. 3. Severe opiate induced constipation 4. Leukocytosis. Continue vancomycin, cefepime and metronidazole Continue to follow up with speech therapy Consider feeding tube if aspiration continues to put him at risk EGD has been proposed in the past to further evaluate the upper GI tract DANTE SALEH MD February 12, 2025 09:55
[2025-02-12] MEDS: acetaminophen 325mg tablet PO PRN (10:06)
[2025-02-12 19:01] LABS: BASOPHILS % (AUTO) 0.1 % (0-1); EOSINOPHILS # (AUTO) 0.3 X10'3 (0-0.9); EOSINOPHILS % (AUTO) 1.6 % (0-6); HEMATOCRIT 30.2 % (42.0-52.0); LYMPHOCYTES # (AUTO) 3.5 X10'3 (1.1-4.8); LYMPHOCYTES % (AUTO) 18.8 % (21-51); MEAN CORPUSCULAR HEMOGLOBIN 28.7 PG (27.0-31.0); MEAN PLATELET VOLUME 8.5 FL (7.4-10.4); MONOCYTES # (AUTO) 1.9 X10'3 (0-0.9); MONOCYTES % (AUTO) 10.6 % (2-12); NEUTROPHILS # (AUTO) 12.7 X10'3 (1.8-7.7); NEUTROPHILS % (AUTO) 68.9 % (42-75); PLATELET COUNT 405 X10'3 (140-440); RED BLOOD COUNT 3.47 X10'6 (4.70-6.10); RED CELL DISTRIBUTION WIDTH 15.6 % (11.5-14.5); WHITE BLOOD COUNT 18.4 X10'3 (4.5-11.0)
[2025-02-12] MEDS: polyethylene glycol 3350 17gm powd pack PO SCH (21:47)
[2025-02-12] MEDS: VANCOMYCIN LEVEL IV ONE (23:37)
[2025-02-13 05:15] LABS: ALANINE AMINOTRANSFERASE 17 U/L (12-78); ALBUMIN 2.2 G/DL (3.4-5.0); ALBUMIN/GLOBULIN RATIO 0.6 (1.1-1.5); ALKALINE PHOSPHATASE 54 IU/L (46-116); ANION GAP 5 (8-16); ASPARTATE AMINO TRANSFERASE 19 U/L (10-37); BILIRUBIN,TOTAL 0.3 MG/DL (0.1-1.0); BLOOD UREA NITROGEN 9 MG/DL (7-18); BUN/CREATININE RATIO 12.2 (10.0-20.0); CALCIUM 8.5 MG/DL (8.5-10.1); CHLORIDE 107 MMOL/L (99-107); CREATININE 0.74 MG/DL (0.60-1.10); GLUCOSE 102 MG/DL (70-104); MAGNESIUM 1.9 MG/DL (1.5-2.4); SODIUM 142 MMOL/L (135-145); TOTAL CARBON DIOXIDE 30.5 MMOL/L (24-32); TOTAL PROTEIN 6.2 G/DL (6.4-8.2); eCRCL 89 ML/MIN; eGFR > 90 ML/MIN
[2025-02-13 05:19] LABS: POTASSIUM 3.7 MMOL/L (3.5-5.1)
[2025-02-13 06:00] VITALS: BP 148/85; PULSE 66; RESP 14; TEMP 98.1; O2SAT 97
[2025-02-13 07:49] LABS: BASOPHILS % (AUTO) 0.3 % (0-1); EOSINOPHILS # (AUTO) 0.6 X10'3 (0-0.9); HEMATOCRIT 30.5 % (42.0-52.0); MEAN CORPUSCULAR HGB CONC 32.8 g/dL (33.0-36.5); MEAN PLATELET VOLUME 8.7 FL (7.4-10.4)
[2025-02-13 07:51] LABS: LYMPHOCYTES # (AUTO) 2.7 X10'3 (1.1-4.8); LYMPHOCYTES % (AUTO) 18.3 % (21-51); MEAN CORPUSCULAR HEMOGLOBIN 28.3 PG (27.0-31.0); MEAN CORPUSCULAR VOLUME 86.1 FL (78-98); MONOCYTES # (AUTO) 2.1 X10'3 (0-0.9); MONOCYTES % (AUTO) 13.9 % (2-12); NEUTROPHILS # (AUTO) 9.5 X10'3 (1.8-7.7); NEUTROPHILS % (AUTO) 63.5 % (42-75); PLATELET COUNT 381 X10'3 (140-440); RED BLOOD COUNT 3.54 X10'6 (4.70-6.10); RED CELL DISTRIBUTION WIDTH 15.6 % (11.5-14.5); WHITE BLOOD COUNT 14.9 X10'3 (4.5-11.0)
[2025-02-13 14:00] VITALS: RESP 18; O2SAT 94
[2025-02-13 18:30] VITALS: BP 89/64; PULSE 83; RESP 16; TEMP 98.8; O2SAT 96
--- NOTE | 2025-02-13 20:24 | PROGRESS NOTE- Residence ---
Progress Note - Resident Providers to CC Resident Creating Document: NOA DOOLEY RES ~ Antibiotic Timeout Antibiotic Ordered?: Yes Subjective Patient was seen and examined bedside, patient had a bowel movement. No acute overnight symptoms. SBO resolved. Speech therapy is evaluating and patient was currently on full liquid diet. Objective Vital Signs Date Time Temp Pulse Resp B/P (MAP) Pulse Ox O2 Delivery O2 Flow Rate FiO2 02/13/25 18:30 98.8 83 16 89/64 (72) 96 Room Air 02/12/25 20:18 0 21 Result Diagram: 02/13/25 0729 02/13/25 0434 Awake , alert, and oriented x4, resting comfortably in the bed, in no acute distress HEENT: Atraumatic, normocephalic, EOMI, anicteric sclera ; pink conjunctiva Neck: Trachea midline. Supple, full range of motion, no JVD Cardiac: Regular rhythm, regular rate with systolic murmurs all over the precordium. Respiratory: No lung sounds on the left lower, normal on the right Gastrointestinal: Abdomen symmetric, non-distended, soft, non-tender, normal bowel sounds x4 quadrant, normoactive, no hepatosplenomegaly Musculoskeletal: Peripheral pulses felt, no edema Neurological: Speech is clear, alert, and oriented x 4. No motor or sensory deficit, deep tendon reflexes normal, cerebellar intact. Cranial nerves II-XII intact. Skin: Warm and dry Coagulation Studies Laboratory Tests Test 02/09/25 01:09 Prothrombin Time 11.2 SECONDS (9.0-12.0) INR International Normalized Ratio 1.1 INR APTT (Heparin Protocol) 26 SECONDS (45-60) L Coagulation Comments Assessment Assessment A 74-year-old male was admitted for partial small bowel obstruction, which resolved in the following CT scan. An incidental chest x-ray showed left collapsed lung with bilateral consolidations and severe atelectasis. Plan Plan Partial small-bowel obstruction: Resolved Sepsis secondary to above versus multifocal pneumonia Lactic acidosis CT abdomen at the outside facility showed: New gastric and distal esophageal and proximal duodenal dilatation at the level of mid transverse duodenum. Increased stool in the rectosigmoid colon consistent with constipation CT abdomen with oral contrast the following day showed: Compared to previous exam an NG tube is been placed with decompression of the stomach and duodenum. No evidence of small-bowel obstruction on this exam. Patient received IV ciprofloxacin Flagyl IV fluids at 75 cc/hour Pain management and IV Zofran 4 mg p.r.n. NG tube in place Dr. Dodd consulted, recommended to continue medical management 02/11/2025: Patient had a large bowel movement, SBO resolved, bowel movements present Speech therapy, recommended full liquid diet NG tube was removed today, full liquid diet, advance as tolerated 02/12/2025: Continue FLL, elevated white count (secondary to steroid use; methylprednisolone was stopped yesterday.) Bowel sounds and bowel movements present. Dr. 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 It is uncertain if this appearance may be due to prior partial pneumonectomy, atelectasis, or other etiology. Please correlate with any surgical history for this patient. Irregular opacities in the right lung, greatest in the upper lung. This appearance may be due to scarring, reactive airways disease, and/or typical pneumonia. Consider follow-up noncontrast CT scan of the chest for better characterization. NG tube tip is distal to the GE junction. 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 CT chest showed: Multifocal airspace consolidations are seen in the lungs bilaterally, left greater than right, most likely infectious or inflammatory in nature, including multifocal pneumonia.Small left and trace right pleural effusions. Mildly prominent mediastinal lymph nodes, may be reactive. Malignancy can not be excluded. Cholelithiasis. [employer] team consulted: Recommended continued medical management 02/11/2025: Dr. Peters, ID was consulted. Recommended to initiate vancomycin, cefepime and metronidazole. Also recommended to stop steroids Continue breathing treatment and antibiotics per ID 02/12/2025: ID on board, continue vanco, cefepime and metronidazole as per ID Physical therapy evaluation pending, patient will probably need a rehab placement Fall and aspiration precautions in place 02/13/2025: Continue current antibiotic Prerenal NOHELIA Resolved Coronary artery disease Continue aspirin 81 mg Bipolar affective disorder Depression Continue quetiapine, methylphenidate, buspirone BPH Continue oxybutynin HLD Lipid panel normal Chronic low back pain Continue pregabalin Code status: Full code Diet: FLL, advance diet as tolerated DVT prophylaxis: Heparin SQ Physical therapy, evaluation pending Patient will probably need a rehab placement Noa Dooley MD Internal Medicine [employer] Date of Service: February 13, 2025 Billing Provider: CATARINO FATIMA MD Common Visit Codes: [id number] INP/OBS CARE(HIGH) NOA DOOLEY, RES February 13, 2025 20:24 CATARINO FATIMA MD February 16, 2025 14:57
[2025-02-14 06:00] VITALS: BP 87/56; PULSE 69; RESP 18; TEMP 98; O2SAT 98
[2025-02-14 06:38] LABS: BASOPHILS % (AUTO) 0.4 % (0-1); EOSINOPHILS % (AUTO) 8.5 % (0-6); HEMATOCRIT 30.5 % (42.0-52.0); LYMPHOCYTES % (AUTO) 26.4 % (21-51); MEAN CORPUSCULAR HEMOGLOBIN 28.2 PG (27.0-31.0); MEAN CORPUSCULAR HGB CONC 32.8 g/dL (33.0-36.5); MEAN PLATELET VOLUME 9.6 FL (7.4-10.4); MONOCYTES # (AUTO) 1.6 X10'3 (0-0.9); MONOCYTES % (AUTO) 13.7 % (2-12); NEUTROPHILS # (AUTO) 5.8 X10'3 (1.8-7.7); PLATELET COUNT 414 X10'3 (140-440); RED BLOOD COUNT 3.55 X10'6 (4.70-6.10); RED CELL DISTRIBUTION WIDTH 15.8 % (11.5-14.5); WHITE BLOOD COUNT 11.3 X10'3 (4.5-11.0)
[2025-02-14 07:02] LABS: ALANINE AMINOTRANSFERASE 15 U/L (12-78); ALBUMIN 2.1 G/DL (3.4-5.0); ALBUMIN/GLOBULIN RATIO 0.6 (1.1-1.5); ALKALINE PHOSPHATASE 50 IU/L (46-116); ANION GAP 4 (8-16); ASPARTATE AMINO TRANSFERASE 15 U/L (10-37); BILIRUBIN,TOTAL 0.3 MG/DL (0.1-1.0); BLOOD UREA NITROGEN 9 MG/DL (7-18); CALCIUM 8.5 MG/DL (8.5-10.1); CHLORIDE 107 MMOL/L (99-107); CREATININE 0.69 MG/DL (0.60-1.10); GLUCOSE 103 MG/DL (70-104); POTASSIUM 3.4 MMOL/L (3.5-5.1); SODIUM 141 MMOL/L (135-145); TOTAL CARBON DIOXIDE 30.2 MMOL/L (24-32); TOTAL PROTEIN 5.9 G/DL (6.4-8.2); eCRCL 95 ML/MIN; eGFR > 90 ML/MIN
[2025-02-14 08:46] VITALS: RESP 18
[2025-02-14 10:00] VITALS: BP 121/68; PULSE 87; RESP 16; TEMP 97.5; O2SAT 95
[2025-02-14] MEDS: lactose-reduced food (Ensure Enlive) - 237ml bottle PO SCH (13:32)
[2025-02-14] MEDS ORDERED: potassium Cl 20 mEq SR tablet PO PRN (16:30)
[2025-02-14] MEDS ORDERED: potassium Cl 40MEQ/1/2NS 520ml 520 ML IV PRN (16:30)
--- NOTE | 2025-02-14 17:58 | PROGRESS NOTE- Residence ---
Progress Note - Resident Providers to CC Resident Creating Document: CARMELLA WHITEHEAD RES ~ Antibiotic Timeout Antibiotic Ordered?: Yes Subjective Patient was seen and examined bedside. No acute overnight symptoms. Speech therapy is evaluating and patient is currently on full liquid diet. Patient requested to be discharged home, however he still has sputum production with diminished lung sounds Objective Vital Signs Date Time Temp Pulse Resp B/P (MAP) Pulse Ox O2 Delivery O2 Flow Rate FiO2 02/14/25 10:00 97.5 87 16 121/68 (85) 95 Room Air 02/14/25 08:46 0.0 02/12/25 20:18 21 Result Diagram: 02/14/25 0529 02/14/25 0529 Awake , alert, and oriented x4, resting comfortably in the bed, in no acute distress HEENT: Atraumatic, normocephalic, EOMI, anicteric sclera ; pink conjunctiva Neck: Trachea midline. Supple, full range of motion, no JVD Cardiac: Regular rhythm, regular rate with systolic murmurs all over the precordium. Respiratory: No lung sounds on the left lower, normal on the right Gastrointestinal: Abdomen symmetric, non-distended, soft, non-tender, normal bowel sounds x4 quadrant, normoactive, no hepatosplenomegaly Musculoskeletal: Peripheral pulses felt, no edema Neurological: Speech is clear, alert, and oriented x 4. No motor or sensory deficit, deep tendon reflexes normal, cerebellar intact. Cranial nerves II-XII intact. Skin: Warm and dry Coagulation Studies Laboratory Tests Test 02/09/25 01:09 Prothrombin Time 11.2 SECONDS (9.0-12.0) INR International Normalized Ratio 1.1 INR APTT (Heparin Protocol) 26 SECONDS (45-60) L Coagulation Comments Advance Care Planning Advanced Care plannin - 30 Minutes Assessment Assessment A 74-year-old male was admitted for partial small bowel obstruction, which resolved in the following CT scan. An incidental chest x-ray showed left collapsed lung with bilateral consolidations and severe atelectasis. Plan Plan Partial small-bowel obstruction: Resolved Sepsis secondary to above versus multifocal pneumonia Lactic acidosis CT abdomen at the outside facility showed: New gastric and distal esophageal and proximal duodenal dilatation at the level of mid transverse duodenum. Increased stool in the rectosigmoid colon consistent with constipation CT abdomen with oral contrast the following day showed: Compared to previous exam an NG tube is been placed with decompression of the stomach and duodenum. No evidence of small-bowel obstruction on this exam. Patient received IV ciprofloxacin Flagyl IV fluids at 75 cc/hour Pain management and IV Zofran 4 mg p.r.n. NG tube in place Dr. Dodd consulted, recommended to continue medical management 02/11/2025: Patient had a large bowel movement, SBO resolved, bowel movements present Speech therapy, recommended full liquid diet NG tube was removed today, full liquid diet, advance as tolerated 02/12/2025: Continue FLL, elevated white count (secondary to steroid use; methylprednisolone was stopped yesterday.) Bowel sounds and bowel movements present. Dr. 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 and claims that it could be the reason for his swallowing issues 02/13/25: No changes compared to yesterday continue monitoring and current medication 02/14/2025: WBC count trended down to 11.3, continuing full liquid diet as per speech therapy Multifocal pneumoniae, high-risk of aspiration pneumonia History of repeated bouts of pneumoniae Possible underlying community-acquired pneumonia, Gram-positive Gram-negative coverage WBC count trended up to 18 from 15 Initiated IV methylprednisone 125 mg once followed by 62 mg q.6 H Initiated IV Zosyn q.8h Initiated DuoNeb q.4h scheduled Chest x-ray showed: Extensive left lung opacities with leftward shift of the heart and mediastinum. It is uncertain if this appearance may be due to prior partial pneumonectomy, atelectasis, or other etiology. Please correlate with any surgical history for this patient. Irregular opacities in the right lung, greatest in the upper lung. This appearance may be due to scarring, reactive airways disease, and/or typical pneumonia. Consider follow-up noncontrast CT scan of the chest for better characterization. NG tube tip is distal to the GE junction. 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 CT chest showed: Multifocal airspace consolidations are seen in the lungs bilaterally, left greater than right, most likely infectious or inflammatory in nature, including multifocal pneumonia.Small left and trace right pleural effusions. Mildly prominent mediastinal lymph nodes, may be reactive. Malignancy can not be excluded. Cholelithiasis. [employer] team consulted: Recommended continued medical management 02/11/2025: Dr. Peters, ID was consulted. Recommended to initiate vancomycin, cefepime and metronidazole. Also recommended to stop steroids Continue breathing treatment and antibiotics per ID 02/12/2025: ID on board, continue vanco, cefepime and metronidazole as per ID Physical therapy evaluation pending, patient will probably need a rehab placement Fall and aspiration precautions in place 02/13/2025: Continue current antibiotic 02/14/2025: Patient was still has yellow sputum production, diminished lung sounds. Continuing antibiotic regimen as per ID Awaiting physical therapy evaluation Prerenal NOHELIA Resolved Coronary artery disease Continue aspirin 81 mg Bipolar affective disorder Depression Continue quetiapine, methylphenidate, buspirone BPH Continue oxybutynin HLD Lipid panel normal Chronic low back pain Continue pregabalin Code status: Full code Diet: FLL, advance diet as tolerated DVT prophylaxis: Heparin SQ Patient denied rehab placement Carmella Whitehead MD Internal Medicine Resident, PGY-1 Date of Service: February 14, 2025 Billing Provider: ALLI SAMSON MD Common Visit Codes: [id number] INP/OBS CARE(HIGH) CARMELLA WHITEHEAD, RES February 14, 2025 17:58 ALLI SAMSON MD February 16, 2025 14:51
[2025-02-14 18:00] VITALS: BP 109/72; PULSE 78; RESP 16; TEMP 97.5; O2SAT 96
[2025-02-14] MEDS: potassium Cl 20 mEq SR tablet PO PRN (19:13)
[2025-02-14 20:00] VITALS: RESP 16; O2SAT 98
[2025-02-14] MEDS: K and/or MAG REPLACEMENT MC SCH (20:00)
[2025-02-14] MEDS: Melatonin 3mg tablet PO SCH (21:47)
[2025-02-14] MEDS: diphenhydrAMINE 25mg capsule PO ONE (21:47)
[2025-02-14 22:00] VITALS: BP 126/72; PULSE 80; RESP 16; TEMP 97.6; O2SAT 95
[2025-02-15] VITALS (7 sets, daily range): BP systolic 115–126; BP diastolic 67–73; PULSE 68–93; RESP 16–20; TEMP 97.9–98.7; O2SAT 93–96
[2025-02-15] MEDS: ketorolac trometh 15mg/ml vial 15 MG/ML ML IV ONE (01:59)
[2025-02-15 09:25] LABS: BASOPHILS # (AUTO) 0.1 X10'3 (0-0.2); BASOPHILS % (AUTO) 0.5 % (0-1); EOSINOPHILS # (AUTO) 1.2 X10'3 (0-0.9); EOSINOPHILS % (AUTO) 10.8 % (0-6); HEMATOCRIT 30.6 % (42.0-52.0); HEMOGLOBIN 10.2 g/dl (14.0-17.9); LYMPHOCYTES # (AUTO) 2.3 X10'3 (1.1-4.8); LYMPHOCYTES % (AUTO) 20.2 % (21-51); MEAN CORPUSCULAR HEMOGLOBIN 28.5 PG (27.0-31.0); MEAN CORPUSCULAR HGB CONC 33.2 g/dL (33.0-36.5); MEAN CORPUSCULAR VOLUME 85.8 FL (78-98); MEAN PLATELET VOLUME 8.6 FL (7.4-10.4); MONOCYTES # (AUTO) 1.2 X10'3 (0-0.9); MONOCYTES % (AUTO) 10.8 % (2-12); NEUTROPHILS # (AUTO) 6.5 X10'3 (1.8-7.7); NEUTROPHILS % (AUTO) 57.7 % (42-75); PLATELET COUNT 475 X10'3 (140-440); RED BLOOD COUNT 3.56 X10'6 (4.70-6.10); RED CELL DISTRIBUTION WIDTH 15.9 % (11.5-14.5); WHITE BLOOD COUNT 11.2 X10'3 (4.5-11.0)
[2025-02-15 09:40] LABS: ALANINE AMINOTRANSFERASE 16 U/L (12-78); ALBUMIN/GLOBULIN RATIO 0.5 (1.1-1.5); ALKALINE PHOSPHATASE 54 IU/L (46-116); ANION GAP 7 (8-16); ASPARTATE AMINO TRANSFERASE 16 U/L (10-37); BILIRUBIN,TOTAL 0.3 MG/DL (0.1-1.0); BLOOD UREA NITROGEN 11 MG/DL (7-18); BUN/CREATININE RATIO 13.3 (10.0-20.0); CALCIUM 8.4 MG/DL (8.5-10.1); CHLORIDE 105 MMOL/L (99-107); CREATININE 0.83 MG/DL (0.60-1.10); GLUCOSE 124 MG/DL (70-104); POTASSIUM 4.3 MMOL/L (3.5-5.1); SODIUM 140 MMOL/L (135-145); TOTAL CARBON DIOXIDE 28.4 MMOL/L (24-32); TOTAL PROTEIN 5.9 G/DL (6.4-8.2); eCRCL 79 ML/MIN; eGFR 90 ML/MIN
--- NOTE | 2025-02-15 19:02 | PROGRESS NOTE- Residence ---
Progress Note - Resident Providers to CC Resident Creating Document: KAYLEIGH RAMIREZ MD ~ Antibiotic Timeout Antibiotic Ordered?: Yes Subjective Patient was seen and examined bedside. No acute overnight symptoms. Speech therapy is evaluating and patient is currently on full liquid diet. Objective Vital Signs Date Time Temp Pulse Resp B/P (MAP) Pulse Ox O2 Delivery O2 Flow Rate FiO2 02/15/25 10:00 98.3 78 16 126/73 (90) 96 Room Air 02/14/25 08:46 0.0 02/12/25 20:18 21 Result Diagram: 02/15/25 0846 02/15/25 0846 Awake , alert, and oriented x4, resting comfortably in the bed, in no acute distress HEENT: Atraumatic, normocephalic, EOMI, anicteric sclera ; pink conjunctiva Neck: Trachea midline. Supple, full range of motion, no JVD Cardiac: Regular rhythm, regular rate with systolic murmurs all over the precordium. Respiratory: No lung sounds on the left lower, normal on the right Gastrointestinal: Abdomen symmetric, non-distended, soft, non-tender, normal bowel sounds x4 quadrant, normoactive, no hepatosplenomegaly Musculoskeletal: Peripheral pulses felt, no edema Neurological: Speech is clear, alert, and oriented x 4. No motor or sensory deficit, deep tendon reflexes normal, cerebellar intact. Cranial nerves II-XII intact. Skin: Warm and dry Coagulation Studies Laboratory Tests Test 02/09/25 01:09 Prothrombin Time 11.2 SECONDS (9.0-12.0) INR International Normalized Ratio 1.1 INR APTT (Heparin Protocol) 26 SECONDS (45-60) L Coagulation Comments Advance Care Planning Advanced Care plannin - 30 Minutes Assessment Assessment A 74-year-old male was admitted for partial small bowel obstruction, which resolved in the following CT scan. An incidental chest x-ray showed left collapsed lung with bilateral consolidations and severe atelectasis. Plan Plan Open induced ileus: Resolved Sepsis secondary to above versus multifocal pneumonia Lactic acidosis CT abdomen at the outside facility showed: New gastric and distal esophageal and proximal duodenal dilatation at the level of mid transverse duodenum. Increased stool in the rectosigmoid colon consistent with constipation CT abdomen with oral contrast the following day showed: Compared to previous exam an NG tube is been placed with decompression of the stomach and duodenum. No evidence of small-bowel obstruction on this exam. Patient received IV ciprofloxacin Flagyl IV fluids at 75 cc/hour Pain management and IV Zofran 4 mg p.r.n. NG tube in place Dr. Dodd consulted, recommended to continue medical management 02/11/2025: Patient had a large bowel movement, SBO resolved, bowel movements present Speech therapy, recommended full liquid diet NG tube was removed today, full liquid diet, advance as tolerated 02/12/2025: Continue FLL, elevated white count (secondary to steroid use; methylprednisolone was stopped yesterday.) Bowel sounds and bowel movements present. Dr. 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 and claims that it could be the reason for his swallowing issues 02/13/25: No changes compared to yesterday continue monitoring and current medication 02/14/2025: WBC count trended down to 11.3, continuing full liquid diet as per speech therapy 02/15/2025: WBC count 11.2, continue treatment as above Multifocal pneumoniae, high-risk of aspiration pneumonia History of repeated bouts of pneumoniae Possible underlying community-acquired pneumonia, Gram-positive Gram-negative coverage WBC count trended up to 18 from 15 Initiated IV methylprednisone 125 mg once followed by 62 mg q.6 H Initiated IV Zosyn q.8h Initiated DuoNeb q.4h scheduled Chest x-ray showed: Extensive left lung opacities with leftward shift of the heart and mediastinum. It is uncertain if this appearance may be due to prior partial pneumonectomy, atelectasis, or other etiology. Please correlate with any surgical history for this patient. Irregular opacities in the right lung, greatest in the upper lung. This appearance may be due to scarring, reactive airways disease, and/or typical pneumonia. Consider follow-up noncontrast CT scan of the chest for better characterization. NG tube tip is distal to the GE junction. 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 CT chest showed: Multifocal airspace consolidations are seen in the lungs bilaterally, left greater than right, most likely infectious or inflammatory in nature, including multifocal pneumonia.Small left and trace right pleural effusions. Mildly prominent mediastinal lymph nodes, may be reactive. Malignancy can not be excluded. Cholelithiasis. Guest Request Runner team consulted: Recommended continued medical management 02/11/2025: Dr. Peters, ID was consulted. Recommended to initiate vancomycin, cefepime and metronidazole. Also recommended to stop steroids Continue breathing treatment and antibiotics per ID 02/12/2025: ID on board, continue vanco, cefepime and metronidazole as per ID Physical therapy evaluation pending, patient will probably need a rehab placement Fall and aspiration precautions in place 02/13/2025: Continue current antibiotic 02/14/2025: Patient still has yellow sputum production, diminished lung sounds. Continuing antibiotic regimen as per ID Awaiting physical therapy evaluation 02/15/2025: Continue antibiotic therapy as per Dr. Peters Prerenal NOHELIA Resolved Coronary artery disease Continue aspirin 81 mg Bipolar affective disorder Depression Continue quetiapine, methylphenidate, buspirone BPH Continue oxybutynin HLD Lipid panel normal Chronic low back pain Continue pregabalin Code status: Full code Diet: FLL, advance diet as tolerated DVT prophylaxis: Heparin SQ Patient was explained regarding the need for rehab placement and continued IV antibiotic, patient finally accepted. Consult rn case manager hospice tomorrow for placement referrals. Lester Whitehead MD Internal Medicine Resident, PGY-1 Date of Service: February 15, 2025 Billing Provider: ALLI SAMSON MD Common Visit Codes: [id number] INP/OBS CARE(HIGH) LESTER WHITEHEAD, RES February 15, 2025 19:02 ALLI SAMSON MD February 16, 2025 14:51
[2025-02-15] MEDS: HYDROcodone/acetaminophen 5mg/325mg tablet PO PRN (22:42)
[2025-02-16] VITALS (10 sets, daily range): BP systolic 82–127; BP diastolic 49–70; PULSE 71–92; RESP 12–18; TEMP 97.2–99; O2SAT 93–98
[2025-02-16 09:45] LABS: BASOPHILS # (AUTO) 0.1 X10'3 (0-0.2); BASOPHILS % (AUTO) 0.7 % (0-1); EOSINOPHILS # (AUTO) 1.3 X10'3 (0-0.9); EOSINOPHILS % (AUTO) 9.2 % (0-6); HEMATOCRIT 30.5 % (42.0-52.0); HEMOGLOBIN 9.8 g/dl (14.0-17.9); LYMPHOCYTES # (AUTO) 3.1 X10'3 (1.1-4.8); LYMPHOCYTES % (AUTO) 22.5 % (21-51); MEAN CORPUSCULAR HGB CONC 32.2 g/dL (33.0-36.5); MEAN PLATELET VOLUME 8.7 FL (7.4-10.4); MONOCYTES # (AUTO) 1.4 X10'3 (0-0.9); MONOCYTES % (AUTO) 10.2 % (2-12); NEUTROPHILS # (AUTO) 7.9 X10'3 (1.8-7.7); NEUTROPHILS % (AUTO) 57.4 % (42-75); PLATELET COUNT 547 X10'3 (140-440); RED CELL DISTRIBUTION WIDTH 16.2 % (11.5-14.5); WHITE BLOOD COUNT 13.8 X10'3 (4.5-11.0)
[2025-02-16 10:45] LABS: ALANINE AMINOTRANSFERASE 16 U/L (12-78); ALBUMIN 2.2 G/DL (3.4-5.0); ALBUMIN/GLOBULIN RATIO 0.6 (1.1-1.5); ALKALINE PHOSPHATASE 51 IU/L (46-116); ANION GAP 7 (8-16); ASPARTATE AMINO TRANSFERASE 22 U/L (10-37); BILIRUBIN,TOTAL 0.2 MG/DL (0.1-1.0); BLOOD UREA NITROGEN 14 MG/DL (7-18); BUN/CREATININE RATIO 14.9 (10.0-20.0); CALCIUM 8.7 MG/DL (8.5-10.1); CHLORIDE 103 MMOL/L (99-107); CREATININE 0.94 MG/DL (0.60-1.10); GLUCOSE 158 MG/DL (70-104); POTASSIUM 3.9 MMOL/L (3.5-5.1); SODIUM 139 MMOL/L (135-145); TOTAL CARBON DIOXIDE 29.4 MMOL/L (24-32); TOTAL PROTEIN 6.1 G/DL (6.4-8.2); eCRCL 70 ML/MIN; eGFR 78 ML/MIN
--- NOTE | 2025-02-16 11:02 | PROGRESS NOTE- Residence ---
Progress Note - Resident Providers to CC Resident Creating Document: LEONA MALONEY RES CC: ALLI SAMSON MD ~ Antibiotic Timeout Antibiotic Ordered?: Yes Subjective Patient was examined at bedside. Patient seems to be irritated, now refuses to go to rehab. Patient is upset that he has to deal with all the machines and people in the hospital. Objective Vital Signs Date Time Temp Pulse Resp B/P (MAP) Pulse Ox O2 Delivery O2 Flow Rate FiO2 02/16/25 07:41 78 18 Room Air 0.0 02/16/25 07:31 93 21 02/16/25 07:28 124/70 (88) 02/16/25 06:00 98.4 Result Diagram: 02/16/25 0841 02/16/25 0841 General: Elderly male, Alert, awake, oriented HEENT: PERRLA, no icterus, pallor, lymphadenopathy, carotid bruit Respiratory system: Decreased breath sounds on the left especially on the lower lobe, normal breath sounds heard on the right side CVS: S1-S2 heard, no murmurs/rubs/gallop GI: Soft, nontender, no organomegaly, no guarding/rigidity, bowel sounds present Neuro: No focal neurological deficits present Extremities: No edema cyanosis clubbing/deformities Skin: Warm and dry Coagulation Studies Laboratory Tests Test 02/09/25 01:09 Prothrombin Time 11.2 SECONDS (9.0-12.0) INR International Normalized Ratio 1.1 INR APTT (Heparin Protocol) 26 SECONDS (45-60) L Coagulation Comments Assessment Assessment A 74-year-old male was admitted for partial small bowel obstruction, which spontaneous resolved, confirmed with a repeat CT scan. An incidental chest x- ray showed left collapsed lung with bilateral consolidations and severe atelectasis. Patient is being managed for multifocal pneumonia, with high-risk of aspiration. Plan Plan Opioid induced ileus: Resolved Lactic acidosis, resolved Repeat CT showed resolution of small-bowel obstruction after a large bowel movement Completed course of IV antibiotics IV fluids at 75 cc/hour Pain management and IV Zofran [address] Roper consulted, recommended to continue medical management Continue full liquid diet as per [employer]ABYS[employer] recommendations Patient might benefit from outpatient upper GI EGD as per Dr. Peters recommendations to assess upper GI tract Bilateral Multifocal pneumoniae Sepsis 2/2 the above Combination of aspiration and community-acquired pneumonia Can not exclude Gram-positive Gram-negative organisms WBC count, up trending Continue IV vancomycin (day 6), cefepime (day 6), metronidazole (day 6) as per Dr. Peters recommendations. Appreciate recs Continue breathing treatments Fall and aspiration precautions in place Follow up with procalcitonin Suspicious mediastinal lymph nodes CT chest: Mildly prominent mediastinal lymph nodes, may be reactive. Malignancy can not be excluded Patient might benefit from outpatient pulmonology follow up Coronary artery disease Continue aspirin 81 mg Bipolar affective disorder Depression Continue quetiapine, methylphenidate, buspirone BPH Continue oxybutynin Chronic low back pain Continue pregabalin Prerenal NOHELIA, resolved HLD: Lipid panel normal, No need for statin therapy in the moment Code status: Full code Diet: FLL, advance diet as tolerated DVT prophylaxis: Heparin SQ Disposition: Awaiting PT assessment, awaiting rehab referrals and placement, pending repeat discussion with the patient as the patient keeps changing his mind frequently. Leona Maloney MD Internal Medicine, PGY 1 Date of Service: February 16, 2025 Billing Provider: ALLI SAMSON MD Common Visit Codes: [id number] INP/OBS CARE(HIGH) LEONA MALONEY, RES February 16, 2025 11:02 ALLI SAMSON MD February 16, 2025 14:52
--- NOTE | 2025-02-16 11:26 | PROGRESS NOTE ---
Progress Note Dictate Providers to CC ~ Subjective Subjective: He is currently up working with physical therapy. He wants to go home, but he understands that IV antibiotics at home may not be possible. Breathing is stable. Objective Objective: GENERAL: He is a pleasant elderly male sitting up in bed looking stable LUNGS: Few coarse breath sounds that appear to be decreased at the left side. HEART: Regular rate and rhythm. ABDOMEN: Soft with some tenderness at the left lower quadrant. He does not have any significant distention. EXTREMITIES: No significant edema. Lab Results: 02/16/25 0841 02/16/25 0841 Problem\Assessment\Plan Additional Plan 1. Severe pneumonia that appears to be bilateral, but dominantly affecting the left lung. This would be considered a hospital acquired process. Aspiration likely playing a role. Left lung has been impaired for a long time, but imaging suggests that disease is worse right now. 2. History of dysphagia with aspiration risk. 3. Severe opiate induced constipation 4. Leukocytosis - persisting and mild Continue vancomycin, cefepime and metronidazole Continue to follow up with speech therapy Consider feeding tube if aspiration continues to put him at risk EGD has been proposed in the past to further evaluate the upper GI tract Ideally, he would go to medical rehab for ongoing IV antibiotics If he is opposed to this idea and wants to go home, would provide him with levofloxacin/clindamycin DANTE SALEH MD February 16, 2025 11:26
[2025-02-16] MEDS ORDERED: DIPH25CA83 PO (21:22)
[2025-02-16] MEDS: diphenhydrAMINE 25mg capsule PO ONE (21:47)
[2025-02-17] VITALS (9 sets, daily range): BP systolic 97–128; BP diastolic 62–70; PULSE 68–98; RESP 15–20; TEMP 97.1–98.5; O2SAT 93–96
[2025-02-17 08:49] LABS: BASOPHILS # (AUTO) 0.1 X10'3 (0-0.2); BASOPHILS % (AUTO) 1.3 % (0-1); EOSINOPHILS # (AUTO) 0.9 X10'3 (0-0.9); EOSINOPHILS % (AUTO) 8.9 % (0-6); HEMATOCRIT 31.8 % (42.0-52.0); HEMOGLOBIN 10.2 g/dl (14.0-17.9); LYMPHOCYTES # (AUTO) 2.7 X10'3 (1.1-4.8); LYMPHOCYTES % (AUTO) 25.3 % (21-51); MEAN CORPUSCULAR VOLUME 87.4 FL (78-98); MONOCYTES # (AUTO) 1.3 X10'3 (0-0.9); MONOCYTES % (AUTO) 12.7 % (2-12); NEUTROPHILS # (AUTO) 5.5 X10'3 (1.8-7.7); NEUTROPHILS % (AUTO) 51.8 % (42-75); PLATELET COUNT 559 X10'3 (140-440); RED BLOOD COUNT 3.64 X10'6 (4.70-6.10); RED CELL DISTRIBUTION WIDTH 16.3 % (11.5-14.5); WHITE BLOOD COUNT 10.6 X10'3 (4.5-11.0)
[2025-02-17 09:11] LABS: ALANINE AMINOTRANSFERASE 30 U/L (12-78); ALBUMIN 2.1 G/DL (3.4-5.0); ALBUMIN/GLOBULIN RATIO 0.5 (1.1-1.5); ALKALINE PHOSPHATASE 52 IU/L (46-116); ANION GAP 5 (8-16); ASPARTATE AMINO TRANSFERASE 43 U/L (10-37); BILIRUBIN,TOTAL 0.3 MG/DL (0.1-1.0); BLOOD UREA NITROGEN 12 MG/DL (7-18); BUN/CREATININE RATIO 16.4 (10.0-20.0); CALCIUM 8.4 MG/DL (8.5-10.1); CHLORIDE 107 MMOL/L (99-107); CREATININE 0.73 MG/DL (0.60-1.10); GLUCOSE 93 MG/DL (70-104); POTASSIUM 3.9 MMOL/L (3.5-5.1); SODIUM 141 MMOL/L (135-145); TOTAL CARBON DIOXIDE 28.7 MMOL/L (24-32); eCRCL 90 ML/MIN; eGFR > 90 ML/MIN
--- NOTE | 2025-02-17 18:17 | PROGRESS NOTE- Residence ---
Progress Note - Resident Providers to CC Resident Creating Document: LEONA ZEPEDA RES CC: ALLI SAMSON MD ~ Antibiotic Timeout Antibiotic Ordered?: Yes Subjective Patient was examined at bedside. Patient was more calmer today. Patient was very adamant about being discharged home and does not want rehab. Objective Vital Signs Date Time Temp Pulse Resp B/P (MAP) Pulse Ox O2 Delivery O2 Flow Rate FiO2 02/17/25 11:36 89 20 Room Air 0.0 02/17/25 11:30 96 21 02/17/25 10:00 97.8 125/66 (85) Result Diagram: 02/17/25 0802 02/17/25 0802 General: Elderly male, Alert, awake, oriented HEENT: PERRLA, no icterus, pallor, lymphadenopathy, carotid bruit Respiratory system: Decreased breath sounds on the left especially on the lower lobe, normal breath sounds heard on the right side CVS: S1-S2 heard, no murmurs/rubs/gallop GI: Soft, nontender, no organomegaly, no guarding/rigidity, bowel sounds present Neuro: No focal neurological deficits present Extremities: No edema cyanosis clubbing/deformities Skin: Warm and dry Coagulation Studies Laboratory Tests Test 02/09/25 01:09 Prothrombin Time 11.2 SECONDS (9.0-12.0) INR International Normalized Ratio 1.1 INR APTT (Heparin Protocol) 26 SECONDS (45-60) L Coagulation Comments Assessment Assessment A 74-year-old male was admitted for partial small bowel obstruction, which spontaneous resolved, confirmed with a repeat CT scan. An incidental chest x- ray showed left collapsed lung with bilateral consolidations and severe atelectasis. Patient is being managed for multifocal pneumonia, with high-risk of aspiration. Plan Plan Opioid induced ileus: Resolved Lactic acidosis, resolved Repeat CT showed resolution of small-bowel obstruction after a large bowel movement Completed course of IV antibiotics IV fluids at 75 cc/hour Pain management and IV Zofran 4 mg p.r.n. Continue full liquid diet as per [employer] recommendations Patient might benefit from outpatient upper GI EGD as per Dr. Peters recommendations to assess upper GI tract Bilateral Multifocal pneumoniae Sepsis 2/2 the above Combination of aspiration and community-acquired pneumonia Can not exclude Gram-positive Gram-negative organisms Elevated WBC count, resolved Continue IV vancomycin (day 7), cefepime (day 7), metronidazole (day 7) as per Dr. Peters recommendations. Appreciate recs Continue breathing treatments Fall and aspiration precautions in place Normal procalcitonin levels Suspicious mediastinal lymph nodes CT chest: Mildly prominent mediastinal lymph nodes, may be reactive. Malignancy can not be excluded Patient might benefit from outpatient pulmonology follow up Coronary artery disease Continue aspirin 81 mg Bipolar affective disorder Depression Continue quetiapine, methylphenidate, buspirone BPH Continue oxybutynin Chronic low back pain Continue pregabalin Prerenal NOHELIA, resolved HLD: Lipid panel normal, No need for statin therapy in the moment Code status: Full code Diet: FLL, advance diet as tolerated DVT prophylaxis: Heparin SQ Disposition: Awaiting PT assessment, awaiting rehab referrals and placement, patient was very adamant to being discharged home Leona Zepeda MD Internal Medicine, PGY 1 Date of Service: February 17, 2025 Billing Provider: ALLI SAMSON MD, SIVA, RES February 17, 2025 18:17
[2025-02-17] MEDS: VANCOMYCIN LEVEL IV ONE (23:30)
[2025-02-18 00:20] VITALS: PULSE 90; RESP 16; O2SAT 94
[2025-02-18 06:00] VITALS: BP 111/66; PULSE 86; RESP 18; TEMP 97.9; O2SAT 97
[2025-02-18 08:00] VITALS: RESP 16; O2SAT 95
[2025-02-18 09:26] LABS: EOSINOPHILS # (AUTO) 0.9 X10'3 (0-0.9); HEMOGLOBIN 10.6 g/dl (14.0-17.9); WHITE BLOOD COUNT 10.8 X10'3 (4.5-11.0)
[2025-02-18 09:28] LABS: BASOPHILS # (AUTO) 0.1 X10'3 (0-0.2); BASOPHILS % (AUTO) 1.1 % (0-1); EOSINOPHILS % (AUTO) 8.3 % (0-6); LYMPHOCYTES # (AUTO) 2.9 X10'3 (1.1-4.8); LYMPHOCYTES % (AUTO) 26.5 % (21-51); MEAN CORPUSCULAR HGB CONC 33.2 g/dL (33.0-36.5); MEAN CORPUSCULAR VOLUME 87.1 FL (78-98); MEAN PLATELET VOLUME 8.4 FL (7.4-10.4); MONOCYTES # (AUTO) 1.4 X10'3 (0-0.9); MONOCYTES % (AUTO) 13.1 % (2-12); NEUTROPHILS # (AUTO) 5.5 X10'3 (1.8-7.7); PLATELET COUNT 610 X10'3 (140-440); RED BLOOD COUNT 3.67 X10'6 (4.70-6.10); RED CELL DISTRIBUTION WIDTH 16.7 % (11.5-14.5)
[2025-02-18 09:38] VITALS: PULSE 86; RESP 18; O2SAT 97
[2025-02-18 09:46] LABS: ALANINE AMINOTRANSFERASE 61 U/L (12-78); ALBUMIN 2.5 G/DL (3.4-5.0); ALBUMIN/GLOBULIN RATIO 0.6 (1.1-1.5); ALKALINE PHOSPHATASE 63 IU/L (46-116); ANION GAP 5 (8-16); ASPARTATE AMINO TRANSFERASE 81 U/L (10-37); BILIRUBIN,TOTAL 0.3 MG/DL (0.1-1.0); BLOOD UREA NITROGEN 16 MG/DL (7-18); CALCIUM 9.1 MG/DL (8.5-10.1); CHLORIDE 102 MMOL/L (99-107); GLUCOSE 98 MG/DL (70-104); POTASSIUM 4.6 MMOL/L (3.5-5.1); SODIUM 141 MMOL/L (135-145); TOTAL CARBON DIOXIDE 33.6 MMOL/L (24-32); TOTAL PROTEIN 6.9 G/DL (6.4-8.2); eCRCL 82 ML/MIN; eGFR > 90 ML/MIN
[2025-02-18 10:00] VITALS: BP 110/62; PULSE 83; RESP 16; TEMP 98.8; O2SAT 95
--- NOTE | 2025-02-18 10:12 | PROGRESS NOTE ---
Progress Note Dictate Providers to CC ~ Subjective Subjective: He strongly desires to go home. He is willing to take oral therapy. He knows that he needs to be stricter with protective measures that have been taught by speech therapy. He would like to follow up with me in the outpatient setting. I believe he has already connected with speech therapy outpatient at [facility]. Objective Objective: GENERAL: He is a pleasant elderly male sitting up in bed looking stable with hoarse voice. LUNGS: Few coarse breath sounds that appear to be decreased at the left side. HEART: Regular rate and rhythm. ABDOMEN: Soft with some tenderness at the left lower quadrant. He does not have any significant distention. EXTREMITIES: No significant edema. Lab Results: 02/18/25 0800 02/18/25 08 Problem\Assessment\Plan Additional Plan 1. Severe pneumonia that appears to be bilateral, but dominantly affecting the left lung. This would be considered a hospital acquired process. Aspiration likely playing a role. Left lung has been impaired for a long time, but imaging suggests that disease is worse right now. He has completed one week of IV therapy with vancomycin/cefepime/metronidazole. 2. History of dysphagia with aspiration risk. 3. Severe opiate induced constipation Change antibiotics to oral therapy with levofloxacin 750 mg daily and clindamycin 300 mg TID Please provide him with three weeks of therapy on discharge Continue to follow up with speech therapy at [facility] Consider feeding tube if aspiration continues to put him at risk EGD has been proposed in the past to further evaluate the upper GI tract He can follow up with me in the outpatient setting He will need repeat imaging Discharge home today Discussed with nursing and resident DANTE SALEH MD February 18, 2025 10:12
[2025-02-18] MEDS: clindamycin 150mg capsule PO SCH (11:37)
[2025-02-18] MEDS: levoFLOXACIN 750MG TABLET PO SCH (11:37)
[2025-02-18] MEDS ORDERED: CLE150C PO (13:11)
[2025-02-18] MEDS ORDERED: LACT1CAP26 PO (13:11)
[2025-02-18] MEDS ORDERED: LEVO750T68 PO (13:11)
--- NOTE | 2025-02-18 16:44 | DISCHARGE SUMMARY-Residence ---
Discharge Summary Providers to CC Resident Creating Document: LEONA ZEPEDA, RES CC: ALLI SAMSON MD ~ Discharge Summary Assessment A 74-year-old male was admitted for partial small bowel obstruction, which spontaneous resolved, confirmed with a repeat CT scan. An incidental chest x- ray showed left collapsed lung with bilateral consolidations and severe atelectasis. Patient is being managed for multifocal pneumonia, with high-risk of aspiration. Admission Diagnosis: SMALL BOWEL OBSTRUCTION Hospital Course DATE OF ADMISSION: 02/09/25 DATE OF DISCHARGE: 02/18/25 Discharge Diagnosis\Comment: Opioid induced ileus, resolved Lactic acidosis, resolved Bilateral multifocal pneumonia Sepsis secondary to the above Combination of aspiration community-acquired pneumonia Suspicious mediastinal lymph nodes Coronary artery disease Bipolar affective disorder Depression BPH Chronic low back pain Operations\Procedures: None Consultants: Dr. Peters (ID) Dr. Vogt (construction code administrator) Complications: None Condition on DC: Stable New Medications: Lactobacillus Rhamnosus (Culturelle) 10 Billion Cell Capsule 1 CAP PO DAILY PRN for q12h for 30 Days, #60 CAP 0 Refills Clindamycin HCl (Clindamycin HCl) 150 Mg Capsule 300 MG PO TID for 21 Days, #126 CAP Take two tablets thrice daily for three weeks Levofloxacin (Levofloxacin) 750 Mg Tablet 750 MG PO DAILY@11 for 21 Days, #21 TAB Continued Medications: Aspirin (Aspir 81) 81 Mg Tablet.dr 1 TAB PO DAILY for 30 Days, #30 TAB Buspirone Hcl* (Buspar*) 10 Mg Tablet 1.5 TAB PO Q12H for 30 Days, #60 TAB Diphenhydramine Hcl (Benadryl) Unknown Strength Capsule Unknown Dose PO HS for 30 Days, #30 CAP 0 Refills Gabapentin (Gabapentin) 600 Mg Tablet 0.5 TAB PO DAILY for 30 Days, #90 TAB 0 Refills Melatonin (Melatonin) 10 Mg Tablet 1 TAB PO HS for sleep for 30 Days, #30 TAB 0 Refills Methylphenidate HCl (Methylphenidate HCl) 5 Mg Tablet 1 TAB PO DAILY for 5 Days, #5 TAB 0 Refills Midodrine Hcl* (Proamatine*) 2.5 Mg Tablet 2 TAB PO BID, TAB Omeprazole (Prilosec) 40 Mg Capsule 1 CAP PO DAILY for 30 Days, #30 CAP Oxybutynin Chloride (Oxybutynin Chloride) 5 Mg Tablet 2 TAB PO DAILY for urinary discomfort for 30 Days, #60 TAB 0 Refills Pregabalin* (Lyrica*) 25 Mg Capsule 2 CAP PO BID, CAP Quetiapine Fumarate (Seroquel) 25 Mg Tablet 1 TAB PO BID for 30 Days, #30 TAB Discontinued Medications: Hydrocodone Bit/Acetaminophen 5/325 MG ([place] 5/325 MG) 5 Mg/325 Mg Tablet 2 TAB PO Q4H PRN for moderate or severe pain, TAB Discharge Summary: A 80-year-old male was presented as a transfer with the complaints of abdominal pain dull in type 6/10 in severity no aggravating or relieving factors no radiation, associated with nausea and vomitings. Patient was about 10 episodes of bilious vomitings with food particles in it. On CT imaging at outside hospital patient: Patient had small-bowel obstruction. Patient was placed on an NG tube, NPO and fluid resuscitation was done in view of low blood pressures which responded. Patient also has chronic use of hydrocodone 07/3256 pills a day for the last one year for chronic back pain. Dr. Roper, surgeon was consulted who recommended conservative management. Patient's ileus resolved with NG tube placement. But simultaneously patient had elevated WBC count from the time of admission that was up trending, with a background of feeling swallow evaluation a chest x-ray was ordered which indicated multifocal pneumonia. Patient was adequately treated with the help of Infectious diseases, Dr. Peters. Patient's all other medical conditions were managed as per home medications. Physical examination at discharge: General: Elderly male, Alert, awake, oriented HEENT: PERRLA, no icterus, pallor, lymphadenopathy, carotid bruit Respiratory system: Decreased breath sounds on the left especially on the lower lobe, normal breath sounds heard on the right side CVS: S1-S2 heard, no murmurs/rubs/gallop GI: Soft, nontender, no organomegaly, no guarding/rigidity, bowel sounds present Neuro: No focal neurological deficits present Extremities: No edema cyanosis clubbing/deformities Skin: Warm and dry Labs at discharge: WBC: 10.8, H/H: 10.6/32, platelet count: 610 Sodium: 141, potassium: 4.6, BUN: 16, creatinine: 0.80 Imaging: Echo: Overall systolic function is hyperdynamic. Prominent septal knuckle is measured at: 1.58 cm. LVEF is 70-75%.LVEF is 70-75%. Abdomen pelvis CT at the time of admission:Colon measures up to 6.2 cm in diameter with constipation. No pneumoperitoneum.Umbilical hernia containing fat. Abdomen/pelvis CT the following day: Compared to previous exam an NG tube is been placed with decompression of the stomach and duodenum. No evidence of small-bowel obstruction on this exam.Bibaslar pleural and parenchymal . Question aspiration related Chest x-ray: Extensive left lung opacities with leftward shift of the heart and mediastinum. It is uncertain if this appearance may be due to prior partial pneumonectomy, atelectasis, or other etiology. Please correlate with any surgical history for this patient.Irregular opacities in the right lung, greatest in the upper lung. This appearance may be due to scarring, reactive airways disease, and/or typical pneumonia. Consider follow-up noncontrast CT scan of the chest for better characterization.NG tube tip is distal to the GE junction. 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 Chest CT:Multifocal airspace consolidations are seen in the lungs bilaterally, left greater than right, most likely infectious or inflammatory in nature, including multifocal pneumonia in the appropriate clinical setting.Small left and trace right pleural effusions.Mildly prominent mediastinal lymph nodes, may be reactive. Malignancy can not be excluded.Cholelithiasis.Mass in the left upper abdomen, abutting the lateral limb of the left adrenal gland, possible adrenal mass, with indeterminate density. Correlate with clinical findings. MRI adrenal mass protocol could be considered for further characterization. Discharge medications can be found above patient was discharged home with the PT services with the following recommendations: Follow up with Dr. Peters (infectious diseases) within two weeks. [phone] Follow up with pulmonology outpatient in view of suspicious nodules in your lungs. Follow up with GI for EGD ([facility] [place], , [facility] [place] [address]) Follow up with your primary care within one week of discharge. Please monitor for QTC interval on EKG at the time of follow up. We have given you antibiotics for three weeks, maintain compliance Strong recommendation to have swallow evaluation and be careful with swallowing food and choking episodes. Behavior opioids as it caused small-bowel obstruction and could be dangerous. Return to ER or call 911 in view of shortness of breaths, dyspnea, palpitations, chest pain *Problems/Diagnosis: (1) Ileus (2) Aspiration pneumonia (3) Dysphagia Total Time Spent on D/C: > 30 Minutes Date of Service: February 18, 2025 Billing Provider: ALLI SAMSON MD, SIVA, RES February 18, 2025 16:44
== END 2025-02-18 16:26 | disposition home or self-care (01) | DRG 871 ==
LOC: ER 00:37 → ED HOLD 02:09 → ORTHO 4S 05:00
PROVIDERS: ADMIT Internal Medicine Critical Care Medicine; ATTEND Family Medicine
PROC: 0D9670Z Drainage of Stomach with Drainage Device, Via Natural or Artificial Opening (ICD-10-PCS; principal; 2025-02-09)
DX: A41.9 Sepsis, unspecified organism (principal); J15.69 Pneumonia due to other Gram-negative bacteria; J15.9 Unspecified bacterial pneumonia; J69.0 Pneumonitis due to inhalation of food and vomit; E87.20 Acidosis, unspecified; K56.7 Ileus, unspecified; N17.9 Acute kidney failure, unspecified; N40.0 Benign prostatic hyperplasia without lower urinary tract symptoms; G89.29 Other chronic pain; M54.59 Other low back pain; F41.9 Anxiety disorder, unspecified; E27.8 Other specified disorders of adrenal gland; K21.9 Gastro-esophageal reflux disease without esophagitis; T40.695A Adverse effect of other narcotics, initial encounter; F31.9 Bipolar disorder, unspecified; I25.10 Atherosclerotic heart disease of native coronary artery without angina pectoris; Z79.82 Long term (current) use of aspirin; Z79.899 Other long term (current) drug therapy; Y92.89 Other specified places as the place of occurrence of the external cause; Z90.81 Acquired absence of spleen
CPT/HCPCS: 36415; 43762; 71045; 71250; 74176; 80053; 80061; 80202; 81001; 83605; 83735; 84145; 85025; 85610; 85651; 85730; 87040; 87081; 92508; 92616; 93005; 93306; 94640; 94760; 96372; 96374; 97110; 97116; 97161; 97164; 97530; 97535; 99285; A5200; A6212; A6213; A6250; C1758; G0378; J0692; J0744; J1200; J1644; J1885; J2270; J2405; J2470; J2543; J2765; J2919; J3370; J3490; J7030; Q0163; Q9963

== ENCOUNTER 2025-03-11 10:33 | Inpatient (IN) | payer OTHER, MEDICARE, MEDICAID ==
[~2025-03-11] VITALS: Ht 180.3 cm; Wt 71.0 kg
[~2025-03-11 10:33] MED LIST: ASPI-611 PO; BUSP10TA11 PO; CLE150C PO; DIPH25CA83 PO; GABA-1405 PO; LACT1CAP26 PO; LEVO750T68 PO; LYR25C PO; MELA10TA2 PO; METH-348 PO; MIDO2.5T PO; OMEP40CA21 PO; OXYB5TAB21 PO; QUET25TA PO
--- NOTE | 2025-03-11 12:12 | Physician Documentation ---
History of Present Illness Chief Complaint: Abdominal Pain Stated Complaint: BOWEL OBSTRUCTION Time Seen by MD: 11:57 Primary Medical Doctor: Dr. Cornell HPI 80-year-old male presenting as [facility] for small bowel obstruction and duodenitis. Patient reports nausea vomiting abdominal pain for 1-1/2 days history of multiple small-bowel obstructions multiple intra-abdominal surgeries UA unremarkable Lactic acid 2.27 WBC 16[address] abdomen and pelvis with IV contrast 03/10/2025 prominent dilation and fluid- filled appearance of the stomach and duodenum with transition 0.2 decompressed distal duodenum at the midline compatible with mechanical obstruction of the distal duodenum Chest x-ray mild linear and patchy opacity right lung apex could be scarring atelectasis or pneumonia Medication Reconciliation Allergies: Coded Allergies: No Known Allergies (Unverified , 02/09/25) Scheduled Aspirin (Aspir 81), 1 TAB PO DAILY, (Reported) Buspirone Hcl* (Buspar*), 1.5 TAB PO Q12H, (Reported) Clindamycin HCl (Clindamycin HCl), 300 MG PO TID Diphenhydramine Hcl (Benadryl), Unknown Dose PO HS, (Reported) Gabapentin (Gabapentin), 0.5 TAB PO DAILY, (Reported) Levofloxacin (Levofloxacin), 750 MG PO DAILY@11 Melatonin (Melatonin), 1 TAB PO HS, (Reported) Methylphenidate HCl (Methylphenidate HCl), 1 TAB PO DAILY, (Reported) Midodrine Hcl* (Proamatine*), 2 TAB PO BID, (Reported) Omeprazole (Prilosec), 1 CAP PO DAILY, (Reported) Oxybutynin Chloride (Oxybutynin Chloride), 2 TAB PO DAILY, (Reported) Pregabalin* (Lyrica*), 2 CAP PO BID, (Reported) Quetiapine Fumarate (Seroquel), 1 TAB PO BID, (Reported) Scheduled PRN Lactobacillus Rhamnosus (Culturelle), 1 CAP PO DAILY PRN for q12h Past Medical History Past Medical History: Bowel Obstruction Review of Systems All Other Systems at this time: Reviewed and Negative Constitutional: Denies: fever Respiratory: Denies: cough, shortness of breath Gastrointestinal: Reports: abdominal pain Physical Exam Vital Signs: Temperature: 97.7, Source: Oral, Heart Rate: 82, Respiratory Rate: 18, BP: 85/54, Pulse Oximetry: 95, Weight: 65.300 Physical Exam Nontoxic NG tube in place draining Pulmonary clear to auscultation bilaterally Abdomen soft minimal tenderness no guarding no rebound Neuro awake alert oriented Progress Progress Note Discussed case with Dr. Roper who agrees with admission to hospitalist for NG tube decompression Consulted hospitalist Service who agree with management plan and graciously accept for admission Results/Orders Reviewed/noted all lab results: Yes Results/Orders Vital Signs 03/11/25 03/11/25 10:37 10:46 Temp 97.7 97.7 Pulse 95 82 Resp 18 18 B/P (MAP) 87/58 85/54 (64) Pulse Ox 95 95 Medical Decision Making Additional info obtained from: old records Findings Reviewed discharge summary February 18, 2025-partial small-bowel obstruction, opiate induced ileus, bilateral multifocal pneumonia status post 1 week IV therapy vancomycin cefepime and Flagyl coronary artery disease bipolar affective disorder. Discharged on Levaquin and clindamycin x3 weeks Echocardiogram LVEF 70 75% Differential Dx:Considerations: Include: Aortic dissection, Bowel obstruction, Constipation, Diverticular disease Departure Disposition: ADMITTED INPATIENT Admitted to Inpatient Unit: to hospitalist Impression: Primary Impression: Duodenitis Additional Impression: Bowel obstruction Qualified Codes: K56.600 - Partial intestinal obstruction, unspecified as to cause Referrals: NO PRIMARY CARE PROVIDER (PCP) Signature Scribe Signature: na Attestation: KAYLEIGH Keita MD March 11, 2025 12:12
[2025-03-11] MEDS: ringers solution, lacted 1,000 ML IV ONE (13:04)
[2025-03-11 13:11] LABS: BASOPHILS % (AUTO) 0.1 % (0-1); EOSINOPHILS % (AUTO) 0.1 % (0-6); HEMATOCRIT 33.4 % (42.0-52.0); HEMOGLOBIN 10.9 g/dl (14.0-17.9); LYMPHOCYTES # (AUTO) 1.5 X10'3 (1.1-4.8); LYMPHOCYTES % (AUTO) 5.4 % (21-51); MEAN CORPUSCULAR HGB CONC 32.7 g/dL (33.0-36.5); MEAN CORPUSCULAR VOLUME 85.6 FL (78-98); MEAN PLATELET VOLUME 8.3 FL (7.4-10.4); MONOCYTES # (AUTO) 1.9 X10'3 (0-0.9); MONOCYTES % (AUTO) 6.9 % (2-12); NEUTROPHILS % (AUTO) 87.5 % (42-75); PLATELET COUNT 478 X10'3 (140-440); RED BLOOD COUNT 3.91 X10'6 (4.70-6.10); RED CELL DISTRIBUTION WIDTH 16.8 % (11.5-14.5)
[2025-03-11 13:13] LABS: WHITE BLOOD COUNT 27.4 X10'3 (4.5-11.0)
[2025-03-11 13:28] LABS: ANISOCYTOSIS 1+; PLATELET ESTIMATE INCREASED; TOTAL CELLS COUNTED 100
[2025-03-11 13:29] LABS: TARGET CELLS FEW
[2025-03-11 13:33] LABS: ALBUMIN 2.9 G/DL (3.4-5.0); ANION GAP 8 (8-16); BLOOD UREA NITROGEN 28 MG/DL (7-18); BUN/CREATININE RATIO 18.4 (10.0-20.0); CALCIUM 9.4 MG/DL (8.5-10.1); CHLORIDE 93 MMOL/L (99-107); CREATININE 1.52 MG/DL (0.60-1.10); GLUCOSE 129 MG/DL (70-104); POTASSIUM 3.1 MMOL/L (3.5-5.1); SODIUM 137 MMOL/L (135-145); TOTAL CARBON DIOXIDE 36.4 MMOL/L (24-32); eCRCL 37 ML/MIN; eGFR 45 ML/MIN
--- NOTE | 2025-03-11 14:40 | RADIOLOGY REPORT ---
EXAM: DI CHEST,SINGLE VIEW Indication: sob Technique: Single frontal view of the chest was obtained Comparison: DI CHEST,SINGLE VIEW on DOS: 02/10/25 FINDINGS: Lines and Tubes: Enteric tube tip projects over the expected region of the stomach. Lungs: Volume loss in the left lung with pulmonary fibrosis. No pneumothorax. Cardiomediastinal contours: Unremarkable, vascular stent projects over the thoracic aorta. Bones: No acute osseous abnormality. IMPRESSION: Volume loss in the left lung with pulmonary fibrosis. Superimposed infection can not be excluded.
[2025-03-11] MEDS: piperacillin/tazo 4.5gm/100ml 100 ML IV ONE (15:07)
[2025-03-11] MEDS ORDERED: potassium Cl 20 mEq SR tablet PO PRN (16:05)
[2025-03-11] MEDS ORDERED: mag hydrox/Alum hydrox/simeth 30ml oral suspension PO PRN (16:05)
[2025-03-11] MEDS ORDERED: magnesium sulf-water 4G/100mL 100 ML IV PRN (16:05)
[2025-03-11] MEDS ORDERED: bisacodyl 10mg suppository rectal RC PRN (16:05)
[2025-03-11] MEDS ORDERED: magnesium sulf-water 2g/50mL 50 ML IV PRN (16:05)
[2025-03-11] MEDS ORDERED: ondansetron/PF 4mg/2ml inj IV PRN (16:05)
[2025-03-11] MEDS: normal saline 1000ml 1,000 ML IV SCH (16:35)
[2025-03-11] MEDS: HYDROmorphone 1 mg/ml syringe IV PRN (16:36)
[2025-03-11] MEDS: LORazepam 2 mg/ml vial IV PRN (18:18)
[2025-03-11] MEDS: K and/or MAG REPLACEMENT MC SCH (20:00)
[2025-03-11] MEDS: docusate sod 100mg capsule PO SCH (20:00)
[2025-03-11] MEDS ORDERED: vancomycin inj 1,000 MG in normal saline 250ml IV soln 250 ML IV ONE (20:30)
--- NOTE | 2025-03-11 20:49 | HISTORY AND PHYSICAL ---
History & Physical Providers to CC ~ History of Present Illness Reason for Admit\Complaint: Small-bowel obstruction History of Present Illness This is a 80-year-old male who was transferred from [facility] for small-bowel obstruction and duodenitis on current CT scan with the patient has a current history of nausea and vomiting for 1-1/2 days as well as abdominal pain generalized-the patient currently [place] a [place] [address] and a left shift neutrophils 87.5%. The patient is this is a very anxious the patient is here admitted on 02/09/2025 and discharged 02/18/2025 for a possible bowel obstruction resolved NG tube suctioning severe pneumonia infectious disease physician has a IV vancomycin IV cefepime metronidazole. ED physician Dr. Urrutia spoke with Dr. Roper surgeon who requested that the patient be admitted in the hospitalist service I have ordered a repeat CT scan with the overnight oral contrast. Continue NG tube to suction. Blood cultures are ordered Allergies: Coded Allergies: No Known Allergies (Unverified , 02/09/25) Home Medications Home Medications Active Culturelle (Lactobacillus Rhamnosus) 10 Billion Cell Capsule 1 Cap PO DAILY PRN 30 Days Clindamycin HCl 150 Mg Capsule 300 Mg PO TID 21 Days Take two tablets thrice daily for three weeks Levofloxacin 750 Mg Tablet 750 Mg PO DAILY@11 21 Days Reported Benadryl (Diphenhydramine Hcl) Unknown Strength Capsule Unknown Dose PO HS 30 Days Gabapentin 600 Mg Tablet 0.5 Tab PO DAILY 30 Days Seroquel (Quetiapine Fumarate) 25 Mg Tablet 1 Tab PO BID 30 Days Lyrica* (Pregabalin) 25 Mg Capsule 2 Cap PO BID Oxybutynin Chloride 5 Mg Tablet 2 Tab PO DAILY 30 Days Prilosec (Omeprazole) 40 Mg Capsule 1 Cap PO DAILY 30 Days Proamatine* (Midodrine) 2.5 Mg Tablet 2 Tab PO BID Methylphenidate HCl 5 Mg Tablet 1 Tab PO DAILY 5 Days Melatonin 10 Mg Tablet 1 Tab PO HS 30 Days Buspar* (Buspirone HCl) 10 Mg Tablet 1.5 Tab PO Q12H 30 Days Aspir 81 (Aspirin) 81 Mg Tablet. 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 Past Social History Social History Comment The patient is not smoke, drink or use illicit drugs. Limited code status no CPR or ventilation defibrillation is acceptable the patient is wants to be cremated at the [facility] and have his ashes scattered [place] ROS ROS Except for positives in the HPI the rest of the 14 point review systems is negative Exam Vitals: Vital Signs Date Time Temp Pulse Resp B/P (MAP) Pulse Ox O2 Delivery O2 Flow Rate FiO2 03/11/25 18:46 19 03/11/25 18:45 83 98 03/11/25 16:37 98.6 0 General: Gen. No acute distress alert and oriented 4, NG tube is present Lungs clear to ascultation bilaterally, no wheezes rales or rhonchi appreciated Heart normal sinus rhythm no murmurs rubs or clicks noted Abdomen soft nontender bowel sounds are normoactive Lower extremities no clubbing cyanosis, nor edema appreciated bilaterally Diagnostic Data Last Recorded Lab Results: 03/11/25 1237 03/11/25 1237 Problems: (1) Obstruction, duodenum Status: Acute Additional Plan # sepsis- possibly secondary to aspiration pneumonia- Metronidazole, IV cefepime and vancomycin Blood cultures were ordered # small-bowel obstruction- NG tube suctioning Repeat CT scan with overnight oral contrast prep is ordered ED physician Dr. Urrutia spoke with Dr. Yao Roper surgeon who will evaluate the patient # anxiety depression bipolar disorder- Awaiting med reconciliation P.r.n. lorazepam # acute kidney injury possibly secondary to ATN IV fluid resuscitation Continue monitor daily CMP # DVT prophylaxis SCDs and SQ Lovenox I spent a total of 18 minutes on reviewing various resuscitative measures/ ACP with the patient at the time of admission. The patient has decided on limited code status defibrillation is acceptable however no CPR or mechanical intubation. The patient is pre paid at the [employer] in [place] and wants to be cremated with [place] Date of Service: March 11, 2025 Billing Provider: DANIELE SORENSEN DO Common Visit Codes: [id number] INP/OBS CARE (HIGH) Secondary Visit Codes: [id number] CARE PLAN 30 MINUTES DANIELE SORENSEN DO March 11, 2025 20:49
[2025-03-11] MEDS: diatr meglu/diatrizoate 30ml oral sol.-(3 dose) bottle PO SCH (21:00)
[2025-03-11] MEDS: VANCOMYCIN/WATER FOR INJ (PEG) 1.5GM/300 ML IVPB IV ONE (21:11)
[2025-03-11] MEDS: heparin, porcine 5000 units/ml vial SQ SCH (21:12)
[2025-03-11] MEDS: potassium Cl 20 mEq SR tablet PO PRN (21:12)
--- NOTE | 2025-03-11 21:13 | PROGRESS NOTE ---
Progress Note ID Providers to CC ~ Progress Note Progress Note: pt seen-denies pain-awaiting repeat ct in am NEDA HAWKINS MD March 11, 2025 21:13
[2025-03-12] VITALS (7 sets, daily range): BP systolic 72–106; BP diastolic 42–58; PULSE 63–78; RESP 14–20; TEMP 97.3–98; O2SAT 93–97
[2025-03-12] MEDS ORDERED: piperacillin/tazo 4.5gm/100ml 100 ML IV SCH
[2025-03-12] MEDS: ringers solution, lacted 1,000 ML IV ONE (00:57)
[2025-03-12] MEDS: cefepime 1GM in D5W 50mL 50 ML IV SCH (00:58)
[2025-03-12] MEDS: metroNIDAZOLE-Flagyl 500mg/NS 100 ML IV SCH (01:26)
--- NOTE | 2025-03-12 01:43 | RADIOLOGY REPORT ---
CHEST RADIOGRAPH Indication: possible aspiration Technique: Single frontal view of the chest was obtained COMPARISON: DI CHEST,SINGLE VIEW on DOS: 03/11/25, DI CHEST,SINGLE VIEW on DOS: 02/10/25 FINDINGS: Lines and Tubes: Previously seen NG tube is no longer evident. Aortic stent graft again noted. Lungs: Opacities noted in the right upper lobe, progressed compared to the prior chest x-ray from a day earlier and consistent with pneumonia. Fibrotic changes with considerable volume loss in the left lung again noted. No pulmonary edema. Pleura: No pleural effusion. No pneumothorax. Cardiomediastinal contours: Within normal limits. IMPRESSION: Opacities noted in right upper lobe, progressed compared to the prior chest x-ray from a day earlier and consistent with pneumonia. Stable fibrotic changes and volume loss in left lung.
[2025-03-12] MEDS: HYDROmorphone inj. 0.5 MG/0.5 ML DISP.SYRIN IV PRN (01:55)
[2025-03-12 07:22] LABS: BASOPHILS # (AUTO) 0.1 X10'3 (0-0.2); HEMATOCRIT 28.2 % (42.0-52.0); HEMOGLOBIN 9.1 g/dl (14.0-17.9); LYMPHOCYTES # (AUTO) 2.1 X10'3 (1.1-4.8); NEUTROPHILS # (AUTO) 13.3 X10'3 (1.8-7.7); RED CELL DISTRIBUTION WIDTH 16.5 % (11.5-14.5)
[2025-03-12 07:25] LABS: BASOPHILS % (AUTO) 0.4 % (0-1); EOSINOPHILS # (AUTO) 0.5 X10'3 (0-0.9); EOSINOPHILS % (AUTO) 3.1 % (0-6); LYMPHOCYTES % (AUTO) 12.2 % (21-51); MEAN CORPUSCULAR HGB CONC 32.3 g/dL (33.0-36.5); MEAN CORPUSCULAR VOLUME 86.5 FL (78-98); MEAN PLATELET VOLUME 8.4 FL (7.4-10.4); MONOCYTES # (AUTO) 1.5 X10'3 (0-0.9); MONOCYTES % (AUTO) 8.5 % (2-12); NEUTROPHILS % (AUTO) 75.8 % (42-75); PLATELET COUNT 385 X10'3 (140-440); RED BLOOD COUNT 3.26 X10'6 (4.70-6.10); WHITE BLOOD COUNT 17.5 X10'3 (4.5-11.0)
[2025-03-12 07:55] LABS: ALANINE AMINOTRANSFERASE 9 U/L (12-78); ALBUMIN 2.3 G/DL (3.4-5.0); ALBUMIN/GLOBULIN RATIO 0.5 (1.1-1.5); ALKALINE PHOSPHATASE 52 IU/L (46-116); ANION GAP 7 (8-16); ASPARTATE AMINO TRANSFERASE 20 U/L (10-37); BILIRUBIN,TOTAL 0.5 MG/DL (0.1-1.0); BLOOD UREA NITROGEN 22 MG/DL (7-18); CALCIUM 8.6 MG/DL (8.5-10.1); CHLORIDE 99 MMOL/L (99-107); CREATININE 1.05 MG/DL (0.60-1.10); GLUCOSE 95 MG/DL (70-104); MAGNESIUM 2.6 MG/DL (1.5-2.4); SODIUM 138 MMOL/L (135-145); TOTAL PROTEIN 6.7 G/DL (6.4-8.2); eCRCL 54 ML/MIN; eGFR 68 ML/MIN
[2025-03-12] MEDS: diazepam inj 5 MG/ML inj. IV PRN (10:04)
[2025-03-12] MEDS: potassium Cl 40MEQ/1/2NS 520ml 520 ML IV PRN (10:05)
[2025-03-12] MEDS ORDERED: MEGE400O40 PO (12:53)
[2025-03-12] MEDS ORDERED: FERR325T28 PO (12:53)
[2025-03-12] MEDS ORDERED: LIDO700A47 TOP (12:53)
[2025-03-12] MEDS ORDERED: ATOR-429 PO (12:53)
[2025-03-12] MEDS: diatrozoate meglu/diatrozoate sod (37% iodine) 120ML oral solution PO ONE (14:12)
--- NOTE | 2025-03-12 14:42 | RADIOLOGY REPORT ---
Exam: CT CT ABDOMEN PELVIS W/ ORAL CONTRAST History: SBO Comparison Study: CT CT ABDOMEN PELVIS W/ ORAL CONTRAST on DOS: 02/09/25, CT CT ABDOMEN PELVIS W/ RECT AL CON CONTRAST on DOS: 02/09/25 Technique: Multidetector spiral CT of the abdomen was performed from lung bases to pubic symphysis. I maging was performed without IV contrast. Axial, coronal and sagittal multiplanar reformats were obta ined from the axial data set by the technologist. Radiation Dose : 1. Abdomen/Pelvis: CTDIvol 12.0 mGy, DLP 639.7 mGy*cm. Findings: Evaluation of solid organs is limited due to lack of intravenous contrast use. Lung Bases: Patchy airspace opacities in the posteromedial right lung base. Liver: The liver is normal in size. No focal lesions. Gallbladder and Biliary Tree: Cholelithiasis noted without secondary findings of cholecystitis or [place] iary obstruction. Spleen: Unremarkable Pancreas: The pancreas is grossly normal in appearance. Adrenal Glands: Unremarkable Kidneys: Kidneys are grossly normal without calculi or hydronephrosis. Bladder: Hyperdense material in the urinary bladder may represent excreted contrast material. Bowel: Enteric contrast is present in the stomach and large bowel. No findings of bowel obstruction. Ascites: Absent Lymphadenopathy: No mesenteric, retroperitoneal or periportal lymphadenopathy. Abdominal Wall and Mesentery: Unremarkable. Vasculature: The visualized abdominal aorta is normal in size and caliber. Evaluation of abdominal a nd pelvic vessels is limited due to lack of intravenous contrast. Pelvic Organs: Unremarkable Musculoskeletal: No aggressive focal bony lesions, acute fractures or dislocation. IMPRESSION: No findings of small-bowel obstruction.
[2025-03-12] MEDS ORDERED: Chloraseptic (Phenol) Spray 177ml MM PRN (18:50)
[2025-03-12] MEDS: Melatonin 3mg tablet PO SCH (20:13)
[2025-03-12] MEDS: acetaminophen 325mg tablet PO PRN (20:14)
[2025-03-12] MEDS: QUEtiapine 25mg tablet PO SCH (20:18)
[2025-03-12] MEDS: midodrine 5mg tablet PO SCH (20:19)
[2025-03-12] MEDS: pregabalin 25mg capsule PO SCH (20:19)
[2025-03-12] MEDS: LORazepam 0.5 MG tablet PO PRN (20:20)
[2025-03-12] MEDS: busPIRone 5mg tablet PO SCH (20:20)
[2025-03-12] MEDS: POTASSIUM BICARB 20meq eff tab 20 MEQ TABLET.EFF PO SCH (20:52)
--- NOTE | 2025-03-12 21:32 | PROGRESS NOTE ---
Progress Note ID Providers to CC ~ Progress Note Progress Note: ct neg-call if needed NEDA HAWKINS MD March 12, 2025 21:32
[2025-03-12] MEDS: normal saline 1000ML IV soln IVB ONE (22:00)
--- NOTE | 2025-03-12 22:23 | PROGRESS NOTE ---
Daily Progress Note Providers to CC ~ Antibiotic Timeout Antibiotic Ordered?: Yes Subjective The patient is white blood cell [place] [address] [place] [address] cc scan of the abdomen and pelvis with overnight oral contrast prep was unremarkable and there was no small-bowel obstruction appreciated. Objective Vital Signs Date Time Temp Pulse Resp B/P (MAP) Pulse Ox O2 Delivery O2 Flow Rate FiO2 03/12/25 21:55 84/58 (67) 03/12/25 14:52 17 03/12/25 10:00 97.8 69 93 Nasal Cannula 2.0 Result Diagram: 03/12/25 0652 03/12/25 0652 Gen. No acute distress alert and oriented 4 Lungs clear to ascultation bilaterally, no wheezes rales or rhonchi appreciated Heart normal sinus rhythm no murmurs rubs or clicks noted Abdomen soft nontender bowel sounds are normoactive Lower extremities no clubbing cyanosis, nor edema appreciated bilaterally Problem\Assessment\Plan Problems/Diagnosis: (1) Obstruction, duodenum # sepsis- possibly secondary to aspiration pneumonia- Metronidazole, IV cefepime and vancomycin as per recommendations from recent hospitalization by Dr. Eddi garcia infectious disease physician Blood cultures are negative thus far 03/12 consult Infectious Disease in the morning # small-bowel obstruction- NG tube suctioning Repeat CT scan with overnight oral contrast prep is ordered ED physician Dr. Urrutia spoke with Dr. Yao Roper surgeon who will evaluate the patient 03/12 CT scan of the abdomen and pelvis with the overnight oral contrast prep was negative for small-bowel obstruction and unremarkable- Dr. Roper has signed off the case # anxiety depression bipolar disorder- Awaiting med reconciliation P.r.n. lorazepam # acute kidney injury possibly secondary to ATN IV fluid resuscitation Continue monitor daily CMP # anemia- Continue monitor daily CBC # DVT prophylaxis SCDs and SQ Lovenox Date of Service: March 12, 2025 Billing Provider: DANIELE SORENSEN DO Common Visit Codes: [id number] INP/OBS CARE(HIGH) DANIELE SORENSEN DO March 12, 2025 22:23
[2025-03-12 22:32] LABS: PRO BRAIN NATRIURETIC PEPTIDE 206 PG/ML (0-450)
[2025-03-12] MEDS: VANCOMYCIN 750MG IV in NS 250 ML IV SCH (23:24)
[2025-03-13 06:00] VITALS: BP 84/59; PULSE 81; RESP 16; TEMP 97.7; O2SAT 98
[2025-03-13 06:21] LABS: BASOPHILS # (AUTO) 0.1 X10'3 (0-0.2); BASOPHILS % (AUTO) 0.4 % (0-1); EOSINOPHILS # (AUTO) 0.8 X10'3 (0-0.9); EOSINOPHILS % (AUTO) 6.5 % (0-6); HEMATOCRIT 27.1 % (42.0-52.0); HEMOGLOBIN 8.8 g/dl (14.0-17.9); LYMPHOCYTES % (AUTO) 16.5 % (21-51); MEAN CORPUSCULAR HEMOGLOBIN 27.8 PG (27.0-31.0); MEAN CORPUSCULAR HGB CONC 32.4 g/dL (33.0-36.5); MEAN CORPUSCULAR VOLUME 85.8 FL (78-98); MEAN PLATELET VOLUME 8.8 FL (7.4-10.4); MONOCYTES # (AUTO) 1.5 X10'3 (0-0.9); MONOCYTES % (AUTO) 12.7 % (2-12); NEUTROPHILS # (AUTO) 7.7 X10'3 (1.8-7.7); NEUTROPHILS % (AUTO) 63.9 % (42-75); PLATELET COUNT 395 X10'3 (140-440); RED BLOOD COUNT 3.16 X10'6 (4.70-6.10); RED CELL DISTRIBUTION WIDTH 16.4 % (11.5-14.5)
[2025-03-13 06:23] LABS: ALANINE AMINOTRANSFERASE 10 U/L (12-78); ALBUMIN 2.1 G/DL (3.4-5.0); ALBUMIN/GLOBULIN RATIO 0.5 (1.1-1.5); ALKALINE PHOSPHATASE 60 IU/L (46-116); ANION GAP 7 (8-16); ASPARTATE AMINO TRANSFERASE 14 U/L (10-37); BILIRUBIN,TOTAL 0.4 MG/DL (0.1-1.0); BLOOD UREA NITROGEN 15 MG/DL (7-18); BUN/CREATININE RATIO 17.2 (10.0-20.0); CALCIUM 8.6 MG/DL (8.5-10.1); CHLORIDE 106 MMOL/L (99-107); CREATININE 0.87 MG/DL (0.60-1.10); GLUCOSE 86 MG/DL (70-104); MAGNESIUM 1.9 MG/DL (1.5-2.4); POTASSIUM 3.7 MMOL/L (3.5-5.1); SODIUM 142 MMOL/L (135-145); TOTAL CARBON DIOXIDE 28.9 MMOL/L (24-32); TOTAL PROTEIN 6.5 G/DL (6.4-8.2); eCRCL 65 ML/MIN; eGFR 85 ML/MIN
[2025-03-13] MEDS: midodrine 5mg tablet PO ONE (09:23)
[2025-03-13] MEDS: oxybutynin 5mg tablet PO SCH (09:26)
[2025-03-13] MEDS: aspirin 81mg, enteric-coated 1 TAB TABLET.DR PO SCH (09:27)
[2025-03-13] MEDS: pantoprazole 40mg Tablet.DR PO SCH (09:27)
[2025-03-13] MEDS: atorvastatin 20mg tablet PO SCH (09:28)
[2025-03-13] MEDS: ferrous sulfate 325mg tablet PO SCH (09:30)
[2025-03-13] MEDS: LIDOcaine 5% patch TP SCH (09:44)
[2025-03-13] MEDS: gabapentin 300mg capsule PO SCH (09:45)
[2025-03-13 10:00] VITALS: BP 101/53; PULSE 117; RESP 14; TEMP 97; O2SAT 97
[2025-03-13] MEDS ORDERED: NUT.TX.IMPAIRED DIGEST FXN (Ensure Clear) 237 ML PO SCH (13:00)
[2025-03-13] MEDS: midodrine tablet 2.5 MG TABLET PO SCH (13:46)
[2025-03-13 18:00] VITALS: BP 112/56; PULSE 51; RESP 14; TEMP 97.4; O2SAT 97
[2025-03-13] MEDS: lactose-reduced food (Ensure Enlive) - 237ml bottle PO SCH (18:00)
--- NOTE | 2025-03-13 21:06 | PROGRESS NOTE ---
Daily Progress Note Providers to CC ~ Antibiotic Timeout Antibiotic Ordered?: Yes Subjective The patient was very sleepy today however he was asking me for pain medication f or which I informed him that his blood pressure was soft and I could not give him pain medication as well as he is asking for anxiety medication and I told him that the combination can cause severe a sedation and we have to be very careful about using the combination of pain medication with benzodiazepines. I did speak with Dr Lily Raza DO Infectious Disease to help manage the patient's antibiotics his white blood cell count has normalized Objective Vital Signs Date Time Temp Pulse Resp B/P (MAP) Pulse Ox O2 Delivery O2 Flow Rate FiO2 03/13/25 18:00 97.4 51 14 112/56 (74) 97 Nasal Cannula 1.0 Result Diagram: 03/13/2545003/13/25450 Gen. No acute distress somnolent how ever easily awoken Lungs clear to ascultation bilaterally, no wheezes rales or rhonchi appreciated Heart normal sinus rhythm no murmurs rubs or clicks noted Abdomen soft nontender bowel sounds are normoactive Lower extremities no clubbing cyanosis, nor edema appreciated bilaterally Problem\Assessment\Plan Problems/Diagnosis: (1) Obstruction, duodenum # sepsis- possibly secondary to aspiration pneumonia- Metronidazole, IV cefepime and vancomycin as per recommendations from recent hospitalization by Dr. Eddi garcia infectious disease physician Blood cultures are negative thus far 03/12 consult Infectious Disease in the morning 03/13 discussed the case with Dr Lily Raza DO Infectious Disease awaiting official consult # small-bowel obstruction- NG tube suctioning Repeat CT scan with overnight oral contrast prep is ordered ED physician Dr. Urrutia spoke with Dr. Yao Roper surgeon who will evaluate the patient 03/12 CT scan of the abdomen and pelvis with the overnight oral contrast prep was negative for small-bowel obstruction and unremarkable- Dr. Roper has signed off the case # anxiety depression bipolar disorder- Awaiting med reconciliation P.r.n. lorazepam # acute kidney injury possibly secondary to ATN IV fluid resuscitation Continue monitor daily CMP # anemia- Continue monitor daily CBC # DVT prophylaxis SCDs and SQ Lovenox Date of Service: March 13, 2025 Billing Provider: DANIELE SORENSEN DO Common Visit Codes: [id number] INP/OBS CARE(HIGH) DANIELE SORENSEN DO March 13, 2025 21:06
[2025-03-13 22:00] VITALS: BP 120/57; PULSE 66; RESP 15; TEMP 98; O2SAT 97
[2025-03-14 05:00] VITALS: BP 133/73; PULSE 69; RESP 17; TEMP 97.3; O2SAT 97
[2025-03-14 05:47] LABS: BASOPHILS # (AUTO) 0.1 X10'3 (0-0.2); BASOPHILS % (AUTO) 0.6 % (0-1); EOSINOPHILS # (AUTO) 0.6 X10'3 (0-0.9); EOSINOPHILS % (AUTO) 5.7 % (0-6); HEMATOCRIT 30.2 % (42.0-52.0); HEMOGLOBIN 9.7 g/dl (14.0-17.9); LYMPHOCYTES # (AUTO) 1.6 X10'3 (1.1-4.8); LYMPHOCYTES % (AUTO) 16.3 % (21-51); MEAN CORPUSCULAR HEMOGLOBIN 27.9 PG (27.0-31.0); MEAN CORPUSCULAR HGB CONC 32.1 g/dL (33.0-36.5); MEAN CORPUSCULAR VOLUME 86.8 FL (78-98); MEAN PLATELET VOLUME 9.1 FL (7.4-10.4); MONOCYTES # (AUTO) 1.2 X10'3 (0-0.9); MONOCYTES % (AUTO) 12.4 % (2-12); NEUTROPHILS # (AUTO) 6.3 X10'3 (1.8-7.7); PLATELET COUNT 443 X10'3 (140-440); RED BLOOD COUNT 3.48 X10'6 (4.70-6.10); RED CELL DISTRIBUTION WIDTH 16.4 % (11.5-14.5); WHITE BLOOD COUNT 9.7 X10'3 (4.5-11.0)
[2025-03-14 06:07] LABS: ALANINE AMINOTRANSFERASE 8 U/L (12-78); ALBUMIN/GLOBULIN RATIO 0.5 (1.1-1.5); ALKALINE PHOSPHATASE 50 IU/L (46-116); ANION GAP 5 (8-16); ASPARTATE AMINO TRANSFERASE 11 U/L (10-37); BILIRUBIN,TOTAL 0.2 MG/DL (0.1-1.0); BLOOD UREA NITROGEN 15 MG/DL (7-18); BUN/CREATININE RATIO 16.5 (10.0-20.0); CALCIUM 8.4 MG/DL (8.5-10.1); CHLORIDE 110 MMOL/L (99-107); CREATININE 0.91 MG/DL (0.60-1.10); GLUCOSE 83 MG/DL (70-104); MAGNESIUM 1.9 MG/DL (1.5-2.4); POTASSIUM 3.7 MMOL/L (3.5-5.1); SODIUM 144 MMOL/L (135-145); TOTAL CARBON DIOXIDE 28.7 MMOL/L (24-32); TOTAL PROTEIN 6.1 G/DL (6.4-8.2); eCRCL 67 ML/MIN; eGFR 81 ML/MIN
[2025-03-14 10:00] VITALS: BP 114/77; PULSE 74; RESP 18; TEMP 97.2; O2SAT 99
[2025-03-14] MEDS: acetaminophen 325mg tablet PO PRN (17:20)
[2025-03-14 19:00] VITALS: BP 113/63; PULSE 73; RESP 18; TEMP 97.6; O2SAT 95
[2025-03-14 20:00] VITALS: RESP 18; O2SAT 95
[2025-03-14] MEDS: LORazepam 1 MG tablet PO PRN (20:24)
--- NOTE | 2025-03-14 20:50 | PROGRESS NOTE ---
Daily Progress Note Providers to CC ~ Antibiotic Timeout Antibiotic Ordered?: Yes Subjective The patient is doing better and is using Tylenol for pain he does not want to use Harold since this appears to have cause issues leading to a small-bowel obstructions which has since resolved. The patient was admitted with sepsis presumed to be secondary to a pneumonia the patient was here in at the end of January and discharged on February 18 with a severe hospital-acquired pneumonia. I spoke to Dr Lily Raza DO Infectious Disease who will consult on the patient tomorrow. PT attempted to work with the patient today twice however the 1st time the patient was not too much pain the 2nd time the patient had to be cleaned up since he has a bowel movement. Objective Vital Signs Date Time Temp Pulse Resp B/P (MAP) Pulse Ox O2 Delivery O2 Flow Rate FiO2 03/14/25 19:00 97.6 73 18 113/63 (80) 95 Nasal Cannula 1.0 Result Diagram: 03/14/2542003/14/25420 Gen. No acute distress alert and oriented x 4 Lungs clear to ascultation bilaterally, no wheezes rales or rhonchi appreciated Heart normal sinus rhythm no murmurs rubs or clicks noted Abdomen soft nontender bowel sounds are normoactive Lower extremities no clubbing cyanosis, nor edema appreciated bilaterally Problem\Assessment\Plan Problems/Diagnosis: (1) Obstruction, duodenum # sepsis- possibly secondary to aspiration pneumonia- Metronidazole, IV cefepime and vancomycin as per recommendations from recent hospitalization by Dr. Eddi garcia infectious disease physician Blood cultures are negative thus far 03/12 consult Infectious Disease in the morning 03/13 discussed the case with Dr Lily Raza DO Infectious Disease awaiting official consult 03/[address] Lily Raza DO Infectious Disease who will consult tomorrow and a recommended continued antibiotics with no changes # small-bowel obstruction- NG tube suctioning Repeat CT scan with overnight oral contrast prep is ordered ED physician Dr. Urrutia spoke with Dr. Yao Roper surgeon who will evaluate the patient 03/12 CT scan of the abdomen and pelvis with the overnight oral contrast prep was negative for small-bowel obstruction and unremarkable- Dr. Roper has signed off the case # anxiety depression bipolar disorder- Awaiting med reconciliation P.r.n. lorazepam # acute kidney injury possibly secondary to ATN IV fluid resuscitation Continue monitor daily CMP # anemia- Continue monitor daily CBC # DVT prophylaxis SCDs and SQ Lovenox Disposition: Awaiting PT evaluation- attempted twice a day by PT on 03/14/2025 however the 1st time the patient was not too much pain and a 2nd time the patient had to be cleaned up the after having a bowel movement. Date of Service: March 14, 2025 Billing Provider: DANIELE SORENSEN DO Common Visit Codes: [id number] INP/OBS CARE(HIGH) DANIELE SORENSEN DO March 14, 2025 20:50
[2025-03-14 22:00] VITALS: BP 96/42; PULSE 82; RESP 20; TEMP 99; O2SAT 95
[2025-03-14] MEDS: VANCOMYCIN LEVEL IV ONE (22:24)
[2025-03-15 06:14] LABS: BASOPHILS # (AUTO) 0.1 X10'3 (0-0.2); EOSINOPHILS # (AUTO) 0.7 X10'3 (0-0.9); EOSINOPHILS % (AUTO) 6.1 % (0-6); HEMATOCRIT 30.2 % (42.0-52.0); HEMOGLOBIN 9.8 g/dl (14.0-17.9); LYMPHOCYTES # (AUTO) 2.6 X10'3 (1.1-4.8); MEAN CORPUSCULAR HEMOGLOBIN 27.9 PG (27.0-31.0); MEAN CORPUSCULAR HGB CONC 32.3 g/dL (33.0-36.5); MEAN CORPUSCULAR VOLUME 86.4 FL (78-98); MEAN PLATELET VOLUME 9.3 FL (7.4-10.4); MONOCYTES # (AUTO) 1.3 X10'3 (0-0.9); MONOCYTES % (AUTO) 10.6 % (2-12); NEUTROPHILS # (AUTO) 7.5 X10'3 (1.8-7.7); NEUTROPHILS % (AUTO) 61.3 % (42-75); PLATELET COUNT 444 X10'3 (140-440); RED CELL DISTRIBUTION WIDTH 16.7 % (11.5-14.5); WHITE BLOOD COUNT 12.3 X10'3 (4.5-11.0)
[2025-03-15 06:24] LABS: ALANINE AMINOTRANSFERASE 8 U/L (12-78); ALBUMIN/GLOBULIN RATIO 0.5 (1.1-1.5); ALKALINE PHOSPHATASE 49 IU/L (46-116); ANION GAP 9 (8-16); ASPARTATE AMINO TRANSFERASE 12 U/L (10-37); BILIRUBIN,TOTAL 0.2 MG/DL (0.1-1.0); BLOOD UREA NITROGEN 17 MG/DL (7-18); BUN/CREATININE RATIO 22.1 (10.0-20.0); CALCIUM 8.4 MG/DL (8.5-10.1); CHLORIDE 111 MMOL/L (99-107); CREATININE 0.77 MG/DL (0.60-1.10); GLUCOSE 97 MG/DL (70-104); MAGNESIUM 1.7 MG/DL (1.5-2.4); POTASSIUM 3.5 MMOL/L (3.5-5.1); SODIUM 146 MMOL/L (135-145); TOTAL CARBON DIOXIDE 26.2 MMOL/L (24-32); eCRCL 79 ML/MIN; eGFR > 90 ML/MIN
[2025-03-15 08:00] VITALS: RESP 16; O2SAT 95
[2025-03-15 08:22] VITALS: BP 113/69; PULSE 68; RESP 16; TEMP 98.1; O2SAT 96
[2025-03-15 11:00] VITALS: BP 101/71; PULSE 71; RESP 16; TEMP 98.1; O2SAT 97
--- NOTE | 2025-03-15 15:37 | PROGRESS NOTE ---
Daily Progress Note Providers to CC ~ Antibiotic Timeout Antibiotic Ordered?: Yes Subjective Wants PT Objective Vital Signs Date Time Temp Pulse Resp B/P (MAP) Pulse Ox O2 Delivery O2 Flow Rate FiO2 03/15/25 11:00 98.1 71 16 101/71 (81) 97 Room Air 03/14/25 22:00 1.0 Result Diagram: 03/15/2542303/15/25423 Alert oriented in NAD HEENT NC, AT , EOMI, Sclera anicteric, conjuctiva pinkish, moist oral mucosa Neck supple, no JVD , Chest clear to auscultation , no wheezes crackles or rhonchi Heart RRR, No murmur gallop or rub Abdomen soft nontender no organomegaly Extremities No C/C/E Neuro exam nonfocal Other Results Medications reviewed Problem\Assessment\Plan Problems/Diagnosis: (1) Obstruction, duodenum # sepsis- possibly secondary to aspiration pneumonia-Continue IV Metronidazole, IV cefepime and vancomycin . ID has been consulted . # small-bowel obstruction- Ruled out NG tube suctioning which has been now removed 03/12 CT scan of the abdomen and pelvis with the overnight oral contrast prep was negative for small-bowel obstruction and unremarkable- Dr. Roper has signed off the case # Anxiety depression bipolar disorder- P.r.n. lorazepam # Acute kidney injury likely vasomotor nephropathy ATN ruled out Resolved with IV fluid resuscitation Continue monitor daily CMP # Anemia- Continue monitor daily CBC # DVT prophylaxis SCDs and SQ Lovenox Disposition: Awaiting PT evaluation Date of Service: Mar 15, 2025 Billing Provider: JOSÉ GARCIA MD Common Visit Codes: [id number] INP/OBS CARE(HIGH) JOSÉ GARCIA MD Mar 15, 2025 15:37
[2025-03-15 18:00] VITALS: BP 122/74; PULSE 74; RESP 20; TEMP 98; O2SAT 96
[2025-03-15 20:00] VITALS: RESP 20; O2SAT 96
[2025-03-15 22:00] VITALS: BP 126/82; PULSE 90; RESP 24; TEMP 98.5; O2SAT 96
[2025-03-15] MEDS: VANCOmycin 1250MG/NS 250ml Bag 250 ML IV SCH (22:18)
[2025-03-16 05:55] LABS: BASOPHILS # (AUTO) 0.1 X10'3 (0-0.2); BASOPHILS % (AUTO) 1.4 % (0-1); EOSINOPHILS # (AUTO) 0.8 X10'3 (0-0.9); EOSINOPHILS % (AUTO) 7.9 % (0-6); HEMATOCRIT 28.2 % (42.0-52.0); HEMOGLOBIN 9.1 g/dl (14.0-17.9); LYMPHOCYTES # (AUTO) 3.3 X10'3 (1.1-4.8); MEAN CORPUSCULAR HEMOGLOBIN 27.7 PG (27.0-31.0); MEAN CORPUSCULAR HGB CONC 32.1 g/dL (33.0-36.5); MEAN CORPUSCULAR VOLUME 86.4 FL (78-98); MEAN PLATELET VOLUME 9.1 FL (7.4-10.4); MONOCYTES % (AUTO) 10.4 % (2-12); NEUTROPHILS # (AUTO) 4.5 X10'3 (1.8-7.7); NEUTROPHILS % (AUTO) 46.3 % (42-75); PLATELET COUNT 431 X10'3 (140-440); RED BLOOD COUNT 3.27 X10'6 (4.70-6.10); RED CELL DISTRIBUTION WIDTH 16.9 % (11.5-14.5); WHITE BLOOD COUNT 9.6 X10'3 (4.5-11.0)
[2025-03-16 06:00] VITALS: BP 142/70; PULSE 89; RESP 20; TEMP 101.3; O2SAT 95
[2025-03-16 06:27] LABS: ALANINE AMINOTRANSFERASE 11 U/L (12-78); ALBUMIN 1.9 G/DL (3.4-5.0); ALBUMIN/GLOBULIN RATIO 0.5 (1.1-1.5); ALKALINE PHOSPHATASE 42 IU/L (46-116); ANION GAP 9 (8-16); ASPARTATE AMINO TRANSFERASE 27 U/L (10-37); BILIRUBIN,TOTAL 0.2 MG/DL (0.1-1.0); BLOOD UREA NITROGEN 19 MG/DL (7-18); BUN/CREATININE RATIO 24.4 (10.0-20.0); CALCIUM 8.2 MG/DL (8.5-10.1); CHLORIDE 107 MMOL/L (99-107); CREATININE 0.78 MG/DL (0.60-1.10); GLUCOSE 92 MG/DL (70-104); MAGNESIUM 1.7 MG/DL (1.5-2.4); POTASSIUM 3.6 MMOL/L (3.5-5.1); SODIUM 142 MMOL/L (135-145); TOTAL CARBON DIOXIDE 25.9 MMOL/L (24-32); TOTAL PROTEIN 5.6 G/DL (6.4-8.2); eCRCL 78 ML/MIN; eGFR > 90 ML/MIN
[2025-03-16 10:30] VITALS: BP 105/70; PULSE 85; RESP 20; TEMP 98.6; O2SAT 93
[2025-03-16] MEDS ORDERED: AMOX1TAB15 PO (13:30)
--- NOTE | 2025-03-16 16:40 | PROGRESS NOTE ---
Daily Progress Note Providers to CC ~ Antibiotic Timeout Antibiotic Ordered?: Yes Subjective No new complaints, patient wants to use tylenol more and wants to come off narcotics. Objective Vital Signs Date Time Temp Pulse Resp B/P (MAP) Pulse Ox O2 Delivery O2 Flow Rate FiO2 03/16/25 10:45 16 03/16/25 10:30 98.6 85 105/70 (82) 93 Room Air 03/15/25 20:00 1.0 Result Diagram: 03/16/25 0515 03/16/25 0515 Alert oriented in NAD HEENT NC, AT , EOMI, Sclera anicteric, conjuctiva pinkish, moist oral mucosa Neck supple, no JVD , Chest clear to auscultation , no wheezes crackles or rhonchi Heart RRR, No murmur gallop or rub Abdomen soft nontender no organomegaly Extremities No C/C/E Neuro exam nonfocal Other Results Medications reviewed Problem\Assessment\Plan Problems/Diagnosis: (1) Obstruction, duodenum # sepsis- possibly secondary to aspiration pneumonia-Will DC antibiotics , requested a consult from Dr. Peters. Per notes from Dr. Yung , he contacted Dr. Raza # small-bowel obstruction- Ruled out NG tube suctioning which has been now removed 03/12 CT scan of the abdomen and pelvis with the overnight oral contrast prep was negative for small-bowel obstruction and unremarkable- Dr. Roper has signed off the case # Anxiety depression bipolar disorder- P.r.n. lorazepam # Acute kidney injury likely vasomotor nephropathy ATN ruled out Resolved with IV fluid resuscitation Continue monitor daily CMP # Anemia- Continue monitor daily CBC # DVT prophylaxis SCDs and SQ Lovenox Disposition: Patient appealed the discharge. Date of Service: Mar 16, 2025 Billing Provider: JOSÉ GARCIA MD Common Visit Codes: [id number] INP/OBS CARE(HIGH) JOSÉ GARCIA MD Mar 16, 2025 16:40
[2025-03-16] MEDS: metroNIDAZOLE 500mg tablet PO SCH (16:59)
[2025-03-16 18:00] VITALS: BP 100/69; PULSE 96; RESP 24; TEMP 97.9; O2SAT 94
--- NOTE | 2025-03-16 18:28 | CONSULTATION ---
DATE OF CONSULTATION: 03/16/2025 DICTATING PHYSICIAN: Chandan Peters MD REASON FOR CONSULTATION: I am seeing the patient at the request of Dr. 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 HISTORY OF PRESENT ILLNESS: The patient is known to me from his last hospitalization. He was hospitalized from late January until early February. He was discharged around 02/18 and I believe he has been out of the hospital for about 3 weeks. He has been taking levofloxacin and clindamycin in the outpatient setting. He came back in with his typical bowel symptoms. He lives up in the [facility] and he may have been transferred down here. He was evaluated by Dr. Roper again and no surgical treatment was needed. He has been receiving vancomycin, cefepime, and metronidazole. He has been stable from a respiratory standpoint. He continues to eat and remains at risk for aspiration. He is not requiring oxygen right now. He does not have any fever and his white blood cell count is normal. Interestingly, when he came into the hospital, his white blood cell count was 27,000, but it quickly dropped down. He states that he has been up moving with physical therapy. He continues to talk about pain medication. He seems to be looking for answers to some of his problems despite the fact that there are no good solutions. We have gone over these issues many times. PHYSICAL EXAMINATION: VITAL SIGNS: He is afebrile with stable vital signs, currently on room air. GENERAL: He is a fairly pleasant elderly male, lying in bed, looking stable. He is a little bit slow to talk at times. LUNGS: Reveal bronchial breath sounds at the left side. HEART: Regular rate and rhythm. ABDOMEN: Soft with some tenderness at the left side. EXTREMITIES: No significant edema. LABORATORY DATA: His white blood cell count is 9,600, hemoglobin 9.1, platelets 431,000. Creatinine is 0.8. Blood cultures are negative. Chest x-ray was reviewed. He demonstrates stable chronic opacification at the left lung. He does have some new patchy changes at the right lung dominantly at the upper lung field. IMPRESSION: * Bilateral pneumonia, dominantly involving the left lung. This is a chronic problem related to aspiration. I suspect his disease has slowly progressed over time. He is certainly stable on broad-spectrum IV therapy and he has already been receiving several weeks of oral therapy with levofloxacin and clindamycin. * History of dysphagia with aspiration risk. * Severe opiate-induced constipation. RECOMMENDATIONS: I did offer once again to have him go to rehab for continuation of IV antibiotics. He does not want to go that route. I want to put him back on his old oral regimen. At this point, if he is going to go home on oral therapy, it may be reasonable to supply him with a combination of Augmentin and doxycycline. This should provide him with fairly robust broad coverage. He understands the need to minimize opiate use. He also understands the risk of aspiration and he has been seen by Speech Therapy in the past. Feeding tubes have been discussed with him and he does not want to move forward with that option at this time. He should be able to go home soon. Thank you for allowing me to participate in the patient's care. Chandan Peters MD TID: [id number] RECEIPT: [id number] ESTEFANIA/MELIZA
[2025-03-16 22:00] VITALS: BP 116/46; PULSE 78; RESP 17; TEMP 97.9; O2SAT 96
[2025-03-17 07:03] VITALS: BP 95/58; PULSE 74; RESP 14; TEMP 97.7; O2SAT 93
[2025-03-17 10:00] VITALS: BP 91/63; PULSE 78; RESP 16; TEMP 98.9; O2SAT 94
[2025-03-17 10:49] VITALS: RESP 14
[2025-03-18] MEDS ORDERED: VANCOMYCIN LEVEL IV ONE (21:30)
== END 2025-03-17 11:46 | disposition home or self-care (01) | DRG 871 ==
LOC: ER 10:34 → ED HOLD 16:12 → ORTHO 4S 03-12 03:34
PROVIDERS: ADMIT Family Medicine; ATTEND Family Medicine
PROC: 0D9670Z Drainage of Stomach with Drainage Device, Via Natural or Artificial Opening (ICD-10-PCS; principal; 2025-03-11)
DX: A41.9 Sepsis, unspecified organism (principal); J69.0 Pneumonitis due to inhalation of food and vomit; K56.600 Partial intestinal obstruction, unspecified as to cause; N17.9 Acute kidney failure, unspecified; F31.9 Bipolar disorder, unspecified; D64.9 Anemia, unspecified; K59.03 Drug induced constipation; K29.80 Duodenitis without bleeding; F41.9 Anxiety disorder, unspecified; Z79.82 Long term (current) use of aspirin; Z79.899 Other long term (current) drug therapy; Z90.81 Acquired absence of spleen
CPT/HCPCS: 36415; 71045; 74176; 80048; 80053; 80202; 82948; 83605; 83735; 83880; 85007; 85025; 87040; 87081; 92508; 92616; 96361; 96365; 97116; 97161; 97530; 99285; A4349; A4358; A4615; A6212; A6213; A6590; G0378; J0692; J1171; J1644; J2060; J2543; J3360; J3370; J3372; J3480; J3490; J7030; J7050; J7120; Q9963